=== PATIENT | male | born 1965 | race Caucasian/White ===

== ENCOUNTER 2021-11-02 13:56 | Outpatient (CLI) | payer OTHER, SELFPAY | END 2021-11-02 13:57 | disposition home or self-care (01) | LOC: ANHAUDASC 13:57 | PROVIDERS: Visit Provider Family Medicine | DX: H91.93 Unspecified hearing loss, bilateral (principal) | CPT/HCPCS: 92557; 92567 ==

== ENCOUNTER 2021-11-29 12:57 | Outpatient (RCR) | payer OTHER, SELFPAY | END 2022-02-27 23:59 | disposition home or self-care (01) | LOC: ANHAUDASC 12:57 | PROVIDERS: Visit Provider Family Medicine | DX: Z46.1 Encounter for fitting and adjustment of hearing aid (principal) | CPT/HCPCS: V5160; V5261 ==

== ENCOUNTER 2022-03-14 15:48 | Emergency (ER) | payer OTHER, SELFPAY ==
--- NOTE | ~2022-03-14 | XR_ITS ---
XR hip LT min 2V DATE: 03/14/2022 16:08 INDICATION: Left hip pain for one month. No injury. TECHNIQUE: AP, lateral and crosstable lateral views of left hip COMPARISON: None FINDINGS: No fracture or dislocation, avascular necrosis or bone destruction of the left hip. Left hip joint sp tai is relatively well-preserved. IMPRESSION: No significant abnormality Reviewed, dictated and finalized at location A. IMPRESSION: No significant abnormality
[2022-03-14 15:55] VITALS: BP 142/69; PULSE 60; RESP 16; TEMP 35.9; O2SAT 99
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
== END 2022-03-14 16:40 | disposition home or self-care (01) ==
PROVIDERS: Emergency Provider Registered Nurse; PCP Family Medicine
DX: M25.552 Pain in left hip (principal); Z87.891 Personal history of nicotine dependence; I25.10 Atherosclerotic heart disease of native coronary artery without angina pectoris; E78.5 Hyperlipidemia, unspecified; I10 Essential (primary) hypertension; Z79.82 Long term (current) use of aspirin
CPT/HCPCS: 73502; 99213; G0463

== ENCOUNTER 2023-03-05 12:38 | Emergency (ER) | payer OTHER, SELFPAY ==
--- NOTE | ~2023-03-05 | XR_ITS ---
EXAMINATION: XR foot LT min 3V DATE: 03/05/2023 13:05 INDICATION: Left foot pain. Fall. TECHNIQUE: 4 views of left foot were obtained. COMPARISON: Left ankle radiographs 05/17/2017 FINDINGS: There is a nondisplaced fracture of the anterior process of calcaneus. There is a chip avul danial fracture of the dorsal aspect of distal talus. Joint spaces are normal. IMPRESSION: 1. Nondisplaced fracture of anterior process of calcaneus. 2. Chip avulsion fracture of the dorsal aspect of distal talus. Reviewed, dictated and finalized at location A.
[2023-03-05 12:55] VITALS: BP 109/91; PULSE 85; RESP 16; TEMP 36.4; O2SAT 100
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
== END 2023-03-05 14:16 | disposition home or self-care (01) ==
PROVIDERS: Emergency Provider Nurse Practitioner; PCP Family Medicine
DX: S92.025A Nondisplaced fracture of anterior process of left calcaneus, initial encounter for closed fracture (principal); W10.9XXA Fall (on) (from) unspecified stairs and steps, initial encounter; S92.152A Displaced avulsion fracture (chip fracture) of left talus, initial encounter for closed fracture; M19.90 Unspecified osteoarthritis, unspecified site; I25.10 Atherosclerotic heart disease of native coronary artery without angina pectoris; E78.5 Hyperlipidemia, unspecified; I10 Essential (primary) hypertension; Z87.891 Personal history of nicotine dependence; F12.90 Cannabis use, unspecified, uncomplicated
CPT/HCPCS: 29515; 73630; 99214; G0463

== ENCOUNTER 2023-08-07 16:34 | Emergency (ER) | payer OTHER, SELFPAY ==
--- NOTE | ~2023-08-07 | XR_ITS ---
EXAMINATION: XR chest 2V DATE: 08/07/2023 17:25 INDICATION: Tachycardia, anxiety and nausea TECHNIQUE: frontal and lateral views of the chest were obtained. COMPARISON: Chest radiograph dated 02/27/11 FINDINGS: There is blunting at the bilateral posterior sulci consistent with tiny bilateral pleural effusions. Mild streaky atelectasis at the right lung base. No other airspace opacities, pulmonary edema or pneu mothorax. Heart size is normal. Heart size is normal. A few old right-sided rib fractures. IMPRESSION: 1. Very small bilateral pleural effusions with mild streaky right basilar atelectasis. Reviewed, dictated and finalized at location A. IMPRESSION: 1. Very small bilateral pleural effusions with mild streaky right basilar atele ctasis.
[2023-08-07 16:45] VITALS: BP 108/87; PULSE 103; RESP 16; TEMP 36.2; O2SAT 98
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
--- NOTE | 2023-08-07 17:14 | ECG_ITS ---
Measurements Intervals [place] Rate: 147 P: [place]: 0 QRS: 52 QRSD: 93 T: 95 QT: 278 QTc: 435 Interpretive Statements ATRIAL FIBRILLATION WITH RAPID VENTRICULAR RESPONSE LOW QRS VOLTAGE IN EXTREMITY LEADS [QRS DEFLECTION < 0.5 mV IN LIMB LEADS] NONSPECIFIC ST & T-WAVE ABNORMALITY ABNORMAL RHYTHM ECG NO PREVIOUS ECG AVAILABLE FOR COMPARISON Electronically Signed On 08-07-2023 20:37:33 CDT by Carly Fox M.D.
[2023-08-07 17:18] LABS: Glucose Point of Care 134 mg/dl (65-105)
== END 2023-08-07 17:55 | disposition short-term general hospital (02) ==
PROVIDERS: Emergency Provider Nurse Practitioner Family; PCP Family Medicine
DX: J90 Pleural effusion, not elsewhere classified (principal); I48.91 Unspecified atrial fibrillation; R11.10 Vomiting, unspecified; Z87.891 Personal history of nicotine dependence; F12.90 Cannabis use, unspecified, uncomplicated; M19.90 Unspecified osteoarthritis, unspecified site; I25.10 Atherosclerotic heart disease of native coronary artery without angina pectoris; E78.5 Hyperlipidemia, unspecified; I10 Essential (primary) hypertension; Z79.82 Long term (current) use of aspirin
CPT/HCPCS: 71046; 82948; 87426; 93005; 99213; C9803; G0463

== ENCOUNTER 2023-08-07 18:14 | Inpatient (IN) | payer OTHER, SELFPAY ==
[2023-08-07] VITALS (26 sets, daily range): BP systolic 102–117; BP diastolic 68–98; PULSE 118–157; RESP 12–20; O2SAT 92–100
--- NOTE | ~2023-08-07 | CT_ITS ---
EXAMINATION: CTA brain carotid DATE: 08/13/2023 00:19 INDICATION: Acute stroke. TECHNIQUE: Computed tomographic angiography (CTA) of the head was performed with 100 mL Omnipaque-350 intravenous contrast. CTA of the neck was performed with intravenous contrast. Automated exposure co ntrol and iterative reconstruction technique were employed. The dose-length product was 1397.07 mGy-c m. Maximum intensity projection and volume rendered 3D-reconstructions were created by the techn[employer]pptalki st on a separate workstation. COMPARISON: Head CT 08/12/2023 FINDINGS: HEAD CTA: There is no intracranial hemorrhage, acute infarction, or abnormal intracranial mass lesion . The ventricles are normal in size. The orbits are normal. There is mucosal thickening in the parana ashley sinuses. Left maxillary sinus is nearly completely opacified and demonstrates volume loss and wal l thickening and sclerosis, consistent with chronic sinusitis. The mastoid air cells are normal. The vertebral arteries are codominant. There is no significant stenosis of basilar artery or the posterio r cerebral arteries. The posterior communicating arteries are normal. There is no significant stenosi s of the intracranial internal carotid arteries or anterior or middle cerebral arteries. Anterior com municating artery is normal. There is no aneurysm. NECK CTA: There is a small right pleural effusion. There are no pathologically enlarged lymph nodes. There is no significant stenosis of the vertebral arteries. There is plaque in the proximal internal carotid arteries. There is 0% stenosis of the proximal right internal carotid artery relative to nor mal distal artery lumen diameter (NASCET criteria). There is 0% stenosis of the proximal left interna l carotid artery relative to normal distal artery lumen diameter. There is moderate cervical spondylo sis. IMPRESSION: 1. Normal brain. 2. No aneurysm or significant intracranial calcinosis. 3. 0% stenosis of the proximal internal carotid arteries relative to normal distal artery lumen diame ters (NASCET criteria). 4. Chronic left maxillary sinusitis. 5. Small right pleural effusion. Reviewed, dictated and finalized at location E. IMPRESSION: 1. Normal brain. 2. No aneurysm or significant intracranial calcinosis. 3. 0% stenosis of the proximal internal carotid arteries relative to normal dis nitin artery lumen diameters (NASCET criteria). 4. Chronic left maxillary sinusitis. 5. Small right pleural effusion.
--- NOTE | ~2023-08-07 | US_ITS ---
US abdomen limited INDICATION: Right upper quadrant pain PROCEDURE: Realtime right upper abdominal ultrasound. COMPARISON: No prior studies for comparison. FINDINGS: The pancreas is normal without focal mass or pancreatic ductal dilation. Liver echotexture is normal without focal mass or intrahepatic biliary dilatation. There is normal directional flow i n the portal vein. There are gallstones. Common bile duct measures 5.7 mm. No sonographic Hinds's sign. IMPRESSION: 1: Cholelithiasis. Reviewed, dictated and finalized at location L. IMPRESSION: 1: Cholelithiasis.
--- NOTE | ~2023-08-07 | CT_ITS ---
EXAMINATION: CT BRAIN W/O DATE: 08/12/2023 22:43 INDICATION: Acute vision loss. TECHNIQUE: Computed tomography (CT) of the head was performed without intravenous contrast. The dose- length product was 605.33 mGy-cm. Automated exposure control and iterative reconstruction technique w ere employed. COMPARISON: No prior studies for comparison. FINDINGS: Normal brain parenchymal volume for age. Normal perkins-white differentiation. No acute intrac ranial hemorrhage, infarction, mass or mass effect. No ventriculomegaly or midline shift. Midline sagittal images demonstrate a normal corpus callosum, c raniovertebral junction and sella turcica. Basilar cisterns are patent. There is mucosal thickening of the left maxillary sinus with mucoperiosteal reaction. Mastoids are pn eumatized. IMPRESSION: 1. No acute intracranial abnormality. 2: Chronic left maxillary sinusitis. Reviewed, dictated and finalized at location A.
--- NOTE | ~2023-08-07 | CT_ITS ---
EXAMINATION: CT brain wo con DATE: 08/14/2023 11:05 INDICATION: Follow-up brain bleed. TECHNIQUE: Computed tomography (CT) of the head was performed without intravenous contrast. The dose- length product was 681.00 mGy-cm. Automated exposure control and iterative reconstruction technique w ere employed. COMPARISON: Comparison to multiple prior studies sequentially, with oldest reviewed study dated 07/16. FINDINGS: There is an acute infarction of the right posterior parietal-occipital lobe with effacement of the overlying cortical sulci. No associated hemorrhage identified by CT. No ventriculomegaly or m idline shift. Basilar cisterns are patent. Mild mucosal thickening of the left maxillary sinus. Paran tammy sinuses are otherwise unremarkable. Mastoids are pneumatized. No depressed skull fractures. IMPRESSION: 1. Acute right posterior parietal/occipital lobe infarction with mild mass effect. No definite associ ated hemorrhage identified by CT. Reviewed, dictated and finalized at location B. IMPRESSION: 1. Acute right posterior parietal/occipital lobe infarction with mild mass effe ct. No definite associated hemorrhage identified by CT.
--- NOTE | ~2023-08-07 | MR_ITS ---
EXAMINATION: MR brain/brain stem wo con DATE: 08/13/2023 12:40 INDICATION: Acute cerebrovascular accident. Acute vision loss. TECHNIQUE: Magnetic resonance imaging (MRI) of the brain and brainstem was performed without intraven ous contrast. COMPARISON: Head CT 08/12/2023 FINDINGS: There is an acute infarct in right temporal occipital region. There is decreased T2*weighte d signal intensity in this distribution, consistent with microhemorrhage. There are scattered areas o f nonspecific increased T2-weighted signal intensity in the cerebral white matter, which is within no rmal limits for the patient's age. There is no abnormal mass lesion. The ventricles are normal in siz e. The orbits are normal. There is mucosal thickening in the paranasal sinuses. Left maxillary sinus is small with thickened wall, consistent with chronic sinusitis. IMPRESSION: 1. Acute infarct with foci of microhemorrhage in right temporal occipital region in the expected dist ribution of right posterior cerebral artery. 2. Chronic left maxillary sinusitis. Reviewed, dictated and finalized at location E. IMPRESSION: 1. Acute infarct with foci of microhemorrhage in right temporal occipital regio n in the expected distribution of right posterior cerebral artery. 2. Chronic left maxillary sinusitis.
--- NOTE | ~2023-08-07 | CT_ITS ---
EXAMINATION: CTA chest PE protocol DATE: 08/07/2023 23:33 INDICATION: Elevated d-dimer TECHNIQUE: Computed tomography angiography (CTA) of the chest was performed with 100 mL Omnipaque-350 intravenous contrast timed to evaluate the pulmonary arteries. Coronal maximum intensity projection 3D-reconstructions were created by the technologist. The dose-length product (DLP) was 909.02 mGy-cm. Automated exposure control and iterative reconstruction technique were employed. COMPARISON: X-ray chest, same date. FINDINGS: Lung parenchyma and airways: Dependent atelectasis. Interlobular septal thickening. Pleura: Unremarkable. Thoracic inlet, axillae and chest wall: Unremarkable. Thoracic aorta: Normal. Mediastinum: Bilateral hilar and mediastinal lymphadenopathy. Dilated central pulmonary arteries as c an be seen with pulmonary arterial hypertension Heart and pericardium: Cardiomegaly. Small volume pericardial effusion. Coronary artery calcifications: Absent. Upper abdomen: Hepatic vein reflux. Cholelithiasis with inflammatory change in the sonu hepatis. Bones: No acute osseous finding. Pulmonary arteries: Study quality: Adequate. No pulmonary emboli detected. IMPRESSION: No CT evidence of acute pulmonary embolus. Cardiomegaly. Small pericardial effusion. Hepatic vein reflux, as can be seen with right heart dysfun ction. Interstitial pulmonary edema. Mediastinal and bilateral hilar lymphadenopathy. Cholelithiasis with inflammatory changes in the sonu hepatis, correlate with right upper quadrant te nderness and biliary labs. Reviewed, dictated and finalized at location K. IMPRESSION: No CT evidence of acute pulmonary embolus. Cardiomegaly. Small pericardial effusion. Hepatic vein reflux, as can be seen w ith right heart dysfunction. Interstitial pulmonary edema. Mediastinal and bilateral hilar lymphadenopathy. Cholelithiasis with inflammatory changes in the sonu hepatis, correlate with r ight upper quadrant tenderness and biliary labs.
--- NOTE | 2023-08-07 18:33 | ECG_ITS ---
Measurements Intervals [place] Rate: 151 P: [place]: 0 QRS: -18 QRSD: 97 T: 133 QT: 300 QTc: 477 Interpretive Statements ATRIAL FIBRILLATION WITH RAPID VENTRICULAR RESPONSE POOR R-WAVE PROGRESSION, CANNOT RULE OUT OLD pOSSIBLE ANTERIOR MYOCARDIAL INFARCTION COMPARED TO ECG 08/07/2023 17:38:44 NO SIGNIFICANT CHANGES Electronically Signed On 08-07-2023 20:38:09 CDT by Carly Fox M.D.
[2023-08-07 19:14] LABS: Basophils Absolute Auto 0.1 K/mm3 (0.0-0.1); Basophils Percent Auto 0.6 % (0.2-1.2); Eosinophils Absolute Auto 0.1 K/mm3 (0-0.3); Eosinophils Percent Auto 0.5 % (0-4.4); Hematocrit 44.4 % (42.0-52.0); Hemoglobin 14.6 g/dL (14.0-18.0); Immature Granulocyte Absolute 0.03 K/mm3 (0.00-0.031); Immature Granulocyte Percent A 0.3 % (0-0.5); Lymphocytes Absolute Auto 1.32 K/mm3 (0.9-3.2); Lymphocytes Percent Auto 11.5 % (18.3-44.2); Mean Corpuscular HGB Conc 32.9 g/dl (32-36); Mean Corpuscular Hemoglobin 30.5 pg (26-34); Mean Corpuscular Volume 92.9 fl (80-100); Mean Platelet Volume 11.7 fl (7.4-10.4); Monocytes Percent Auto 8.9 % (2.6-8.5); Neutrophils Percent Auto 78.2 % (45.5-73.1); Platelet Count Result 229 k/mm3 (150-375); Red Blood Count 4.78 M/mm3 (4.6-6.20); Red Cell Distribution Width 14.2 % (11.5-14.5); White Blood Count 11.5 K/mm3 (4.5-10.0)
[2023-08-07 19:20] LABS: INR 1.3; Partial Thromboplastin Time 29.2 SECONDS (22.3-36.8)
[2023-08-07 19:41] LABS: Ethanol < 10 mg/dL (<10)
[2023-08-07 19:42] LABS: Alanine Aminotransferase 115 U/L (6-50); Albumin Level 4.1 g/dL (3.5-5.1); Alkaline Phosphatase 83 U/L (38-126); Anion Gap 11 mmol/L (8-16); Aspartate Amino Transferase 179 U/L (17-59); Bilirubin,Total 2.1 mg/dL (0.2-1.3); Blood Urea Nitrogen 17 mg/dL (9-20); Calcium 8.9 mg/dL (8.4-10.2); Carbon Dioxide 19 mmol/L (22-30); Chloride 104 mmol/L (98-107); Estimated CRCL calculation 97 ml/min; Estimated Glomerular Filt Rate > 60; Glucose 116 mg/dL (65-110); Magnesium 1.8 mg/dL (1.6-2.3); Sodium 134 mmol/L (137-145)
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
[2023-08-07 19:53] LABS: NT Pro B Type Natriuretic Pept 7960 pg/mL (19.9-100); Troponin I 0.014 ng/mL (0.000-0.034)
[2023-08-07] MEDS: SODIUM CHLORIDE 0.9% IV 1,000 ML 999 ML IV CONT (20:07)
[2023-08-07] MEDS: MAGNESIUM SULF 1 GM/D5W 100 ML 1 GM/100 ML BAG IVPB (20:08)
[2023-08-07] MEDS: dilTIAZem HCl INJ 25 MG/5 ML VIAL 10 MG IV PUSH ×2 (21:06→22:09)
[2023-08-07 21:50] LABS: Troponin I 0.015 ng/mL (0.000-0.034)
[2023-08-07 22:13] LABS: D Dimer 1.45 ug/mL (<0.48)
[2023-08-07] MEDS: SODIUM CHLORIDE 0.9% IV 1,000 ML 125 ML IV CONT (23:15)
[2023-08-07] MEDS: dilTIAZem 100 MG/100 ML 100 MG/100 ML BAG IV CONT (23:17)
[2023-08-07 23:29] LABS: Appearance Urine Clear (Clear); Bilirubin Urine Negative (Negative); Blood Urine Negative (Negative); Color Urine Yellow (Yellow); Glucose Urine UA Negative (Negative); Ketones Urine Negative (Negative); Leukocyte Esterase Ur Negative LEU/UL (Negative); Nitrate Urine Negative (Negative); Protein Urine Negative (Negative); Specific Grav Ur 1.009 (1.001-1.035); pH Urine 5.5 (5.0-9.0)
[2023-08-07 23:30] LABS: Add Urine Microscopic? NO
[2023-08-08] VITALS (38 sets, daily range): BP systolic 90–117; BP diastolic 61–93; PULSE 70–144; RESP 14–23; TEMP 36–36.6; O2SAT 92–99; BMI 26.6
--- NOTE | 2023-08-08 | ECHO_ITS ---
Patient Info Name: Roberto Dinero Age: 58 years : 1965 Gender: Male Ht: 73 in Wt: 218 lbs BSA: 2.28 m2 HR: 90 bpm BP: 97 / 68 mmHg Heart Rhythm: Sinus Rhythm, Atrial Fibrillation Technical Quality: Good Exam Date: 08/08/2023 2:27 PM Exam Location: [facility] Card Pulmonary Patient Status: Inpatient Admit Date: 08/07/2023 Staff Ordering Physician: Lesa Gerber MD Demurrage Worker: Jammie Mao RDCS Attending Provider: Renetta Boston MD Exam Type: CA echo doppler color flow Study Info Indications - new onset a fib Complete two-dimensional, color flow and Doppler transthoracic echocardiogram is performed. Summary 1. Complete two-dimensional, color flow and Doppler transthoracic echocardiogram is performed. 2. Mild left ventricular enlargement with normal wall thickness. Severe global hypokinesis with an estimated ejection fraction of 20%. Diastolic dysfunction is present. 3. The right ventricle also appears mildly enlarged with moderate hypokinesis. 4. There is moderate mitral valve regurgitation. 5. There is mild tricuspid valve regurgitation. 6. No pulmonary hypertension, estimated pulmonary arterial systolic pressure is 29 mmHg. 7. Atrial fibrillation. Left Ventricle Left ventricular chamber dimension is mildly enlarged. Left ventricular systolic function is severely reduced, estimated at 15-20%. There is no increased left ventricular wall thickness. Left ventricular septal wall motion is normal. The left ventricular diastolic function is abnormal. Right Ventricle Right ventricular chamber dimension is mildly enlarged. Right ventricular systolic function is reduced. Left Atria Left atrial chamber dimension is severely enlarged. Right Atria Right atrial chamber dimension is mildly enlarged. Aortic Valve The aortic valve is trileaflet. There is no aortic valve sclerosis. There is no aortic valve stenosis. There is trace aortic valve regurgitation. Pulmonic Valve The pulmonic valve is normal. There is no pulmonic valve stenosis. There is no pulmonic regurgitation. Mitral Valve The mitral valve has normal leaflets. There is no mitral valve stenosis. There is moderate mitral valve regurgitation. Tricuspid Valve The tricuspid valve leaflets are normal. There is no significant tricuspid valve stenosis. There is mild tricuspid valve regurgitation. No pulmonary hypertension, estimated pulmonary arterial systolic pressure is 29 mmHg. Pericardium/Pleural The pericardium appears normal. There is no pericardial effusion. Inferior Vena Cava Dilated inferior vena cava with >50% collapse upon inspiration consistent with Empty right atrial pressure, 15 mmHg. Aorta The aortic root size at the sinus of Valsalva is normal. The prox ascending aorta size is normal. Left Ventricular Outflow Tract Name Value Normal LVOT 2D LVOT Diameter 2.3 cm LVOT Doppler LVOT Peak Gradient 3 mmHg LVOT Mean Gradient 2 mmHg LVOT VTI 18 cm LVOT VTI/AV VTI Ratio 0.8 LVOT Stroke Volume 75 ml LVOT CO 5.0 l/min
--- NOTE | 2023-08-08 03:31 | ADMGEN ---
This patient, Roberto Dinero, was admitted to IMU Room 209-01. Patient/family oriented to hospital policies and general routines including ID bracelet, bed and alarms, visiting hours, pain management, procedures, bathroom and other care routines, personal items, smoking policy, room service/diet, and visiting hours. Information on how to activate the Rapid Response Team has been discussed. Patient/Family are encouraged to report perceived risks to care and to ask questions if they do not understand what they are told or what they should do.
[2023-08-08] MEDS: dilTIAZem 100 MG/100 ML 100 MG/100 ML BAG 15 MG IV CONT ×2 (06:09→12:59)
--- NOTE | 2023-08-08 10:00 | ECG_ITS ---
Measurements Intervals [address] [place] Rate: 89 P: AK: 0 QRS: 51 QRSD: 99 T: 159 QT: 400 QTc: 487 Interpretive Statements ATRIAL FIBRILLATION LOW QRS VOLTAGE IN EXTREMITY LEADS [QRS DEFLECTION < 0.5 mV IN LIMB LEADS] ST DEVIATION AND MODERATE T-WAVE ABNORMALITY, CONSIDER ANTEROLATERAL ISCHEMIA [-0.1+ mV T WAVE IN V3-V6] COMPARED TO ECG 08/07/2023 18:39:51 THE LATERAL T-WAVE INVERSION IS NEW Electronically Signed On 08-08-2023 12:59:33 CDT by Carly Fox M.D.
[2023-08-08] MEDS: KETOROLAC 30 MG/ML VIAL (*BKC) IV PUSH (10:42)
[2023-08-08] MEDS: SODIUM CHLORIDE 0.9% IV 1,000 ML 125 ML IV CONT (10:43)
[2023-08-08 10:54] LABS: Troponin I 0.016 ng/mL (0.000-0.034)
[2023-08-08 11:08] LABS: Hemoglobin 12.6 g/dL (14.0-18.0); Mean Corpuscular HGB Conc 32.3 g/dl (32-36); Mean Corpuscular Hemoglobin 30.1 pg (26-34); Mean Corpuscular Volume 93.3 fl (80-100); Mean Platelet Volume 11.1 fl (7.4-10.4); Platelet Count Result 199 k/mm3 (150-375); Red Blood Count 4.18 M/mm3 (4.6-6.20); White Blood Count 9.7 K/mm3 (4.5-10.0)
[2023-08-08 11:26] LABS: Alanine Aminotransferase 102 U/L (6-50); Albumin Level 3.8 g/dL (3.5-5.1); Alkaline Phosphatase 81 U/L (38-126); Anion Gap 9 mmol/L (8-16); Aspartate Amino Transferase 108 U/L (17-59); Bilirubin,Total 1.7 mg/dL (0.2-1.3); Blood Urea Nitrogen 13 mg/dL (9-20); Calcium 8.4 mg/dL (8.4-10.2); Carbon Dioxide 19 mmol/L (22-30); Chloride 107 mmol/L (98-107); Estimated CRCL calculation 105 ml/min; Estimated Glomerular Filt Rate > 60; Glucose 99 mg/dL (65-110); Lipase 71 U/L (23-300); Potassium 3.8 mmol/L (3.4-5.0); Sodium 135 mmol/L (137-145)
--- NOTE | 2023-08-08 12:06 | PM.CNGS ---
Assessment and Plan Assessment and plan (1) Cholelithiasis: Code(s): K80.20 - Calculus of gallbladder without cholecystitis without obstruction Status: Acute Assessment and Plan: CTA chest showed cholelithiasis with inflammatory change in the sonu hepatis. Labs showed elevated LFTs, total bilirubin 2.1, AST 179, ALT 115, and normal alk phos. He does report having abdominal pain, vomiting, and diarrhea intermittently for the past week. It is possible that some of his symptoms are related to his gallbladder. Recommend keeping him NPO for now and proceeding with RUQ abdominal ultrasound to further evaluate the gallbladder. We will also start IV antibiotics to cover for possible acute cholecystitis. Will repeat labs today and trend LFTs. His abdominal pain has subsided and symptoms improved. Depending on further work-up, we may need to consider the option of proceeding with a cholecystectomy at some point once his atrial fibrillation is controlled if warranted. If there is any common bile duct dilatation or elevation in his total bilirubin, then we may need to also consider an MRCP to evaluate for choledocholithiasis. (2) Elevated LFTs: Code(s): R79.89 - Other specified abnormal findings of blood chemistry Status: Acute Assessment and Plan: See plan above. (3) Atrial fibrillation with RVR: Code(s): I48.91 - Unspecified atrial fibrillation Status: Acute Assessment and Plan: New onset atrial fibrillation with RVR. Still on a diltiazem drip, but rate improved. Continue management per primary service. We would need his afib to be controlled prior to considering proceeding with surgery. (4) Hypertension: Code(s): I10 - Essential (primary) hypertension Status: Acute Plan I have discussed the patient's case and plan of care with Dr. Jarvis. Thank you for allowing us to see the patient in consultation and we will continue to follow along with you. History of Present Illness Consult details Consult date: 08/08/23 Reason for consult: other (Cholelithiasis with sonu hepatic inflammation on CTA chest) Requesting physician: Julian Hicks DO Narrative: This is a 58 year old man with a history of hypertension and hyperlipidemia, who presented to an urgent care yesterday with multiple medical complaints. Over the past week, he has had generalized malaise, upper abdominal pain, poor appetite, nausea, vomiting, and diarrhea. He reports first noticing he wasn't feeling well and having an episode of emesis through the night. He began having diarrhea, that seemed to persist over the next few days. He had 3-4 episodes of vomiting over the past week and could not associate this with meals or anything specific. He also had persistent upper abdominal pain. This was pretty constant and he denies any aggravating factors. He had a poor appetite, so he could not tell if the pain was associated with eating. He was having panic attacks and would have episodes where he felt like he couldn't breathe. With further questioning, he does reports noticing dark orange-colored urine over the past week, but denies acholic stools or jaundice. He decided to present to urgent care for his symptoms yesterday. He had a chest x-ray that showed very small bilateral pleural effusions and right basilar atelectasis. EKG ordered and showed atrial fibrillation with RVR. He was then directed to the ER for further workup. In the ER, he was in Atrial fibrillation with RVR. He was given IV fluids, magnesium, and started on a diltiazem drip. Labs showed a WBC count of 11,500, total bilirubin 2.1, AST 179, ALT 115. COVID negative. Ddimer 1.45. CTA chest was ordered and was negative for pulmonary embolism, but showed cardiomegaly, small pericardial effusion, hepatic vein reflux, interstitial pulmonary edema, mediastinal and bilateral hilar lymphadenopathy, cholelithiasis with inflammatory change int he sonu hepatis. He was admitted to IMU. Our servi
[2023-08-08] MEDS: PIPERACILLN/TAZ 3.375GM/NS50ML 3.375 GM/50 ML BAG IVPB ×3 (12:43→23:39)
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
[2023-08-08 15:13] LABS: Basophils Absolute Auto 0.1 K/mm3 (0.0-0.1); Basophils Percent Auto 0.5 % (0.2-1.2); Eosinophils Absolute Auto 0.1 K/mm3 (0-0.3); Eosinophils Percent Auto 0.7 % (0-4.4); Hematocrit 38.7 % (42.0-52.0); Hemoglobin 12.6 g/dL (14.0-18.0); Immature Granulocyte Absolute 0.03 K/mm3 (0.00-0.031); Immature Granulocyte Percent A 0.3 % (0-0.5); Mean Corpuscular HGB Conc 32.6 g/dl (32-36); Mean Corpuscular Hemoglobin 30.4 pg (26-34); Mean Corpuscular Volume 93.3 fl (80-100); Mean Platelet Volume 10.8 fl (7.4-10.4); Monocytes Absolute Auto 0.9 K/mm3 (0.1-0.6); Monocytes Percent Auto 9.3 % (2.6-8.5); Neutrophils Percent Auto 77.2 % (45.5-73.1); Platelet Count Result 196 k/mm3 (150-375); Red Blood Count 4.15 M/mm3 (4.6-6.20); White Blood Count 9.1 K/mm3 (4.5-10.0)
--- NOTE | 2023-08-08 15:27 | PC.NURSE ---
On 08/08/23, the student, Mayelin [facility], provided care and completed [employer] documentation on this patient. I have reviewed the student's documentation and agree with the findings.
[2023-08-08] MEDS: HEPARIN SOD/D5W 100 UNITS/ML 25,000 UNITS/250 ML BAG 15 UNITS IV CONT (15:32)
[2023-08-08 15:33] LABS: INR 1.4; Partial Thromboplastin Time 33.3 SECONDS (22.3-36.8); Prothrombin Time 17.9 Seconds (11.1-14.7)
[2023-08-08] MEDS: METOPROLOL TARTRATE 25 MG TABLET PO ×2 (15:35→22:00)
[2023-08-08] MEDS: HYDROcodone/acetaminophen (*CRX) 10-325 MG TABLET 1 TAB PO (18:14)
[2023-08-08] MEDS: DOCUSATE SODIUM 100 MG CAPSULE PO (18:20)
[2023-08-08] MEDS: dilTIAZem 100 MG/100 ML 100 MG/100 ML BAG IV CONT (20:12)
[2023-08-08] MEDS: OXYMETAZOLINE HCL 0.05% NAS 15 ML BTL (*BKC) 2 SPRAY NASAL (21:59)
[2023-08-08] MEDS: LORazepam (*CRX) 0.5 MG TABLET PO (22:00)
[2023-08-08] MEDS: PRAVASTATIN SODIUM 20 MG TABLET PO (22:00)
[2023-08-08] MEDS: OMEGA 3 POLYUNSAT FATTY ACIDS 1 GM CAP PO (22:00)
[2023-08-08 22:03] LABS: Partial Thromboplastin Time 69.3 SECONDS (22.3-36.8)
[2023-08-09] VITALS (25 sets, daily range): BP systolic 98–122; BP diastolic 70–93; PULSE 62–142; RESP 17–20; TEMP 36.5–36.8; O2SAT 94–100
[2023-08-09 05:36] LABS: Basophils Percent Auto 0.4 % (0.2-1.2); Hematocrit 40.6 % (42.0-52.0); Immature Granulocyte Absolute 0.03 K/mm3 (0.00-0.031); Immature Granulocyte Percent A 0.3 % (0-0.5); Lymphocytes Absolute Auto 0.76 K/mm3 (0.9-3.2); Mean Corpuscular Hemoglobin 30.2 pg (26-34); Mean Corpuscular Volume 94.2 fl (80-100); Mean Platelet Volume 11.2 fl (7.4-10.4); Monocytes Absolute Auto 1.2 K/mm3 (0.1-0.6); Monocytes Percent Auto 11.4 % (2.6-8.5); Neutrophils Absolute Auto 8.9 K/mm3 (1.3-6.7); Neutrophils Percent Auto 80.9 % (45.5-73.1); Platelet Count Result 195 k/mm3 (150-375); Red Blood Count 4.31 M/mm3 (4.6-6.20); Red Cell Distribution Width 14.1 % (11.5-14.5); White Blood Count 10.9 K/mm3 (4.5-10.0)
[2023-08-09 05:41] LABS: INR 1.4; Prothrombin Time 17.8 Seconds (11.1-14.7)
[2023-08-09 05:44] LABS: Alanine Aminotransferase 215 U/L (6-50); Albumin Level 3.7 g/dL (3.5-5.1); Alkaline Phosphatase 81 U/L (38-126); Anion Gap 9 mmol/L (8-16); Aspartate Amino Transferase 297 U/L (17-59); Bilirubin,Total 1.5 mg/dL (0.2-1.3); Blood Urea Nitrogen 19 mg/dL (9-20); Calcium 8.7 mg/dL (8.4-10.2); Carbon Dioxide 21 mmol/L (22-30); Chloride 106 mmol/L (98-107); Estimated CRCL calculation 85 ml/min; Estimated Glomerular Filt Rate > 60; Glucose 119 mg/dL (65-110); Potassium 4.3 mmol/L (3.4-5.0); Sodium 136 mmol/L (137-145)
[2023-08-09] MEDS: PIPERACILLN/TAZ 3.375GM/NS50ML 3.375 GM/50 ML BAG IVPB ×4 (05:53→23:38)
[2023-08-09] MEDS: METOPROLOL TARTRATE 25 MG TABLET PO ×2 (09:34→13:39)
[2023-08-09] MEDS: ONDANSETRON INJ 4 MG/2 ML VIAL IV PUSH (09:54)
--- NOTE | 2023-08-09 10:01 | PC.NURSE ---
Dr. Jarvis called RN. I was paged regarding Mr. Dinero. RN informed MD that she had called pre-op for clarification on pt after being informed in report that They may take him to surgery. Dr. Jarvis wants his Afib more controlled, and now it is. Pt still on Cardizem gtt at 5mg/hr. Dr. Jarvis clarified I'm not taking this pt to surgery. I would like to discharge him from my stand point and proceed with outpatient surgery once stable from a cardiac stand point. The pt can eat if he's hungry. You can put him on the same diet he was on yesterday. As far as the heparin drip, I'm not sure who started it or stop it so that'll need to be addressed with that doctor. RN in agreement with Dr. Jarvis's recommendations and placed pt on bland, low fat diet.
[2023-08-09] MEDS: MULTIVITAMINS /C LUTEIN (CENTRUM SILVER) TABLET *BKC 0.5 TAB PO ×2 (10:51→16:18)
[2023-08-09] MEDS: ASPIRIN 81 MG ENTERIC TABLET PO (10:52)
[2023-08-09] MEDS: LORATADINE 10 MG TABLET PO (10:52)
[2023-08-09] MEDS: PSYLLIUM POWDER PACKET 1 PACKET PO (10:52)
[2023-08-09] MEDS: CYCLOBENZAPRINE HCL 10 MG TABLET PO ×3 (10:52→16:18)
--- NOTE | 2023-08-09 12:13 | PM.PNGS ---
Progress Note: A&P Assessment and Plan (1) Cholelithiasis: Code(s): K80.20 - Calculus of gallbladder without cholecystitis without obstruction Status: Acute Assessment and Plan: Patient likely has been having some symptomatic cholelithiasis and some degree of chronic cholecystitis. I do not think he has acute cholecystitis to the point that he needs urgent surgery at this point. He has recently diagnosed with new onset atrial fibrillation and his heart rate is now controlled. I discussed with the hospitalist and he plans on discharging the patient on Eliquis. I think that is reasonable and ventrally when I perform an interval laparoscopic cholecystectomy on a patient I can stop his Eliquis 3 days before surgery. We will go ahead and discharge him with some Cipro for the next 10 days. He is to follow-up see me in office in 2 weeks to further discuss surgery for his gallbladder. (2) Elevated LFTs: Code(s): R79.89 - Other specified abnormal findings of blood chemistry Status: Acute Assessment and Plan: Slightly decreased total bilirubin today. Okay to discharge home. Subjective Subjective Date/Time Seen: 08/09/23 12:13 Interval history: Patient feels good today. Really no right upper quadrant epigastric abdominal pain. He is tolerating full low-fat diet without difficulty. Liver enzymes are slightly decreased. Exam GI: Other: Abdomen is soft and nondistended. Palpation of the right upper quadrant reveals no significant tenderness. Abdominal exam is benign. Objective Data Vital Signs Vital Signs: Vital Signs - 24 hr 08/08/23 12:59 08/08/23 15:35 08/08/23 16:21 Temperature 36.1 C L Pulse Rate 114 H 83 81 Respiratory Rate 20 Blood Pressure 94/72 L Pulse Oximetry 95 Oxygen Delivery 08/08/23 18:15 08/08/23 16:00 08/08/23 14:00 Temperature Pulse Rate 70 80 86 Respiratory Rate Blood Pressure Pulse Oximetry Oxygen Delivery 08/08/23 18:00 08/08/23 19:33 08/08/23 19:36 Temperature 36.4 C Pulse Rate 74 72 77 Respiratory Rate 20 Blood Pressure 90/61 L Pulse Oximetry 96 Oxygen Delivery 08/08/23 16:00 08/08/23 20:12 08/08/23 20:28 Temperature Pulse Rate 76 Respiratory Rate Blood Pressure 90/61 L 108/83 Pulse Oximetry Oxygen Delivery Room Air 08/08/23 22:00 08/08/23 22:58 08/08/23 20:00 Temperature 36.3 C L Pulse Rate 96 84 84 Respiratory Rate 20 Blood Pressure 108/74 Pulse Oximetry 99 Oxygen Delivery 08/08/23 20:00 08/09/23 00:00 08/08/23 22:00 Temperature Pulse Rate 104 H Respiratory Rate Blood Pressure Pulse Oximetry Oxygen Delivery Room Air Room Air 08/09/23 00:00 08/09/23 02:00 08/09/23 03:57 Temperature 36.8 C Pulse Rate 88 86 90 Respiratory Rate 20 Blood Pressure 105/71 Pulse Oximetry 100 Oxygen Delivery 08/09/23 04:00 08/09/23 04:00 08/09/23 06:00 Temperature Pulse Rate 87 96 Respiratory Rate Blood Pressure Pulse Oximetry Oxygen Delivery Room Air 08/09/23 07:25 08/09/23 09:34 08/09/23 11:33 Temperature 36.6 C 36.7 C Pulse Rate 62 99 66 Respiratory Rate 17 18 Blood Pressure 104/72 106/78 Pulse Oximetry 94 97 Oxygen Delivery Intake/Output Intake/Output: Intake & Output 08/06/23 08/07/23 08/08/23 08/09/23 23:59 23:59 23:59 23:59 Intake Total 1100 2100 700 Output Total 1400 Balance 1100 700 700 Meds/Results Medications: Active Medications Generic Name Dose Route Start Last Admin Trade Name Freq PRN Reason Stop Dose Admin Acetaminophen 650 mg 08/08/23 17:51 Acetaminophen 325 Mg Tablet PO Q6H PRN Mild Pain (1-3) or Fever Hydrocodone Bitart/Acetaminophen 1 tab 08/08/23 17:51 08/08/23 18:14 Hydrocodone/Acetaminophen (*Crx) 10-325 Mg Tablet PO 1 tab Q6H PRN Administration Pain Rated 4-6 Aspirin 81 mg 08/09/23 09:00 08/09/23 10:52 Aspirin 8
--- NOTE | 2023-08-09 13:06 | PM.IMPN ---
Progress Note: A&P Assessment and Plan (1) Cholelithiasis: Code(s): K80.20 - Calculus of gallbladder without cholecystitis without obstruction Status: Acute (2) Elevated LFTs: Code(s): R79.89 - Other specified abnormal findings of blood chemistry Status: Acute (3) Atrial fibrillation with RVR: Code(s): I48.91 - Unspecified atrial fibrillation Status: Acute Plan 58M w/ PMH [place], HTN. mother is present in room and gives the history as well. The patient had weeks of weakness, nausea, and nonbilious vomiting a few times. At night he also felt palpitations which awoke him from sleep. He finally decided to seek evaluation. Admitted on 08/08 1) new onset a fib - dilt weaned from 15mg to 5mg. will d'c and increased metoprolol to 50mg po bid given his HR is now in low 100's - CTA neg for PE - TSH wnl - chadsvasc is 2. switching heparin to eliquis, will have cholecystectomy per surgery as outpatient - 2d echo revealing severe global hypokinesis w/ EF 20% and diastolic dysfunction. considering this will consult cardiology - had elevated BNP on admission and 08/09 pt complaining of swelling in feet and excessively tired. consult PT/OT and give one time dose lasix 20mg po 2) leukocytosis - could be reactive or 2/2 to gallbladder issues - check sputum culture - pro sandeep tomorrow 3) cholelithiasis - likely chronic. surgery plan for outpatient, will continue zosyn for now and cipro on discharge for 10 days - monitor lfts FEN: saline lock IV, cardiac diet GI prophylaxis: not indicated DVT prophylaxis: eliquis Lines: pIV Code Status: full code Dispo: stable More than 35 minutes spent on chart review, patient interaction and assessment and plan. Subjective Date/time seen: 08/09/23 13:06 Interval history: pt reports feeling like there is water on his feet, got tired from brushing his hair. he has been producing sputum. weak, but better, no other complaints. Review of Systems Review of Systems: All systems reviewed & are unremarkable except as noted in HPI and below Exam Const: General: comfortable and no acute distress Resp: Effort & Inspection: normal respiratory effort Auscultation: crackles (scant/ at bases) Cardio: Rhythm: abnormal rhythm GI: GI Palp: Yes Soft to palpation Auscultation: normal bowel sounds Extrem: General: no edema Objective Data Vital Signs Vital Signs: Vital Signs - 24 hr 08/08/23 15:35 08/08/23 16:21 08/08/23 18:15 Temperature 97.0 F L Pulse Rate 83 81 70 Respiratory Rate 20 Blood Pressure 94/72 L Pulse Oximetry 95 Oxygen Delivery 08/08/23 16:00 08/08/23 14:00 08/08/23 18:00 Temperature Pulse Rate 80 86 74 Respiratory Rate Blood Pressure Pulse Oximetry Oxygen Delivery 08/08/23 19:33 08/08/23 19:36 08/08/23 16:00 Temperature 97.6 F Pulse Rate 72 77 Respiratory Rate 20 Blood Pressure 90/61 L Pulse Oximetry 96 Oxygen Delivery Room Air 08/08/23 20:12 08/08/23 20:28 08/08/23 22:00 Temperature Pulse Rate 76 96 Respiratory Rate Blood Pressure 90/61 L 108/83 Pulse Oximetry Oxygen Delivery 08/08/23 22:58 08/08/23 20:00 08/08/23 20:00 Temperature 97.4 F L Pulse Rate 84 84 Respiratory Rate 20 Blood Pressure 108/74 Pulse Oximetry 99 Oxygen Delivery Room Air 08/09/23 00:00 08/08/23 22:00 08/09/23 00:00 Temperature Pulse Rate 104 H 88 Respiratory Rate Blood Pressure Pulse Oximetry Oxygen Delivery Room Air 08/09/23 02:00 08/09/23 03:57 08/09/23 04:00 Temperature 98.2 F Pulse Rate 86 90 Respiratory Rate 20 Blood Pressure 105/71 Pulse Oximetry 100 Oxygen Delivery Room Air 08/09/23 04:00 08/09/23 06:00 08/09/23 07:25 Temperature 97.8 F Pulse Rate 87 96 62 Respiratory Rate 17 Blood Pressure 104/72 Pulse Oximetry 94 Oxygen Delivery 08/09/23 09:34 08/09/23 11:33 08/09/23 08:00 Temperature 98.1 F Pulse
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
[2023-08-09] MEDS: FUROSEMIDE 20 MG TABLET PO (13:38)
--- NOTE | 2023-08-09 16:03 | PCCPR ---
Seen patient regarding Cardiac Rehab. Program explained and patient seemed interested. Will follow up after discharge.
[2023-08-09] MEDS: FUROSEMIDE INJ 40 MG/4 ML VIAL IV PUSH (16:18)
[2023-08-09] MEDS: HEPARIN SODIUM 5,000 UNITS/ML VIAL 7500 UNITS IV PUSH (16:18)
[2023-08-09] MEDS: HEPARIN SOD/D5W 100 UNITS/ML 25,000 UNITS/250 ML BAG 15 UNITS IV CONT (16:19)
[2023-08-09 17:11] LABS: Basophils Absolute Auto 0.1 K/mm3 (0.0-0.1); Basophils Percent Auto 0.7 % (0.2-1.2); Eosinophils Absolute Auto 0.1 K/mm3 (0-0.3); Eosinophils Percent Auto 0.6 % (0-4.4); Hematocrit 41.3 % (42.0-52.0); Hemoglobin 13.3 g/dL (14.0-18.0); Immature Granulocyte Absolute 0.03 K/mm3 (0.00-0.031); Immature Granulocyte Percent A 0.3 % (0-0.5); Lymphocytes Absolute Auto 1.19 K/mm3 (0.9-3.2); Lymphocytes Percent Auto 11.3 % (18.3-44.2); Mean Corpuscular HGB Conc 32.2 g/dl (32-36); Mean Corpuscular Hemoglobin 30.5 pg (26-34); Mean Corpuscular Volume 94.7 fl (80-100); Mean Platelet Volume 10.9 fl (7.4-10.4); Monocytes Absolute Auto 1.2 K/mm3 (0.1-0.6); Monocytes Percent Auto 11.1 % (2.6-8.5); Platelet Count Result 206 k/mm3 (150-375); Red Blood Count 4.36 M/mm3 (4.6-6.20); Red Cell Distribution Width 14.4 % (11.5-14.5); White Blood Count 10.5 K/mm3 (4.5-10.0)
[2023-08-09 17:19] LABS: INR 1.4; Prothrombin Time 17.6 Seconds (11.1-14.7)
[2023-08-09 17:20] LABS: Partial Thromboplastin Time 30.7 SECONDS (22.3-36.8)
[2023-08-09] MEDS: PRAVASTATIN SODIUM 20 MG TABLET PO (20:34)
[2023-08-09] MEDS: OMEGA 3 POLYUNSAT FATTY ACIDS 1 GM CAP PO (20:34)
[2023-08-09] MEDS: METOPROLOL TARTRATE INJ 5 MG/5 ML VIAL IV PUSH (20:34)
[2023-08-09] MEDS: METOPROLOL TARTRATE 50 MG TAB PO (21:09)
[2023-08-09] MEDS: SACUBITRIL/VALSARTAN 12-13 MG TABLET 1 TAB PO (21:09)
[2023-08-09 22:32] LABS: Partial Thromboplastin Time 109.3 SECONDS (22.3-36.8)
[2023-08-09] MEDS: DIGOXIN 250 MCG TABLET PO (23:37)
[2023-08-10] VITALS (20 sets, daily range): BP systolic 100–144; BP diastolic 66–86; PULSE 53–116; RESP 16–20; TEMP 36.1–36.6; O2SAT 94–100
[2023-08-10 05:27] LABS: Basophils Absolute Auto 0.1 K/mm3 (0.0-0.1); Basophils Percent Auto 0.9 % (0.2-1.2); Eosinophils Absolute Auto 0.2 K/mm3 (0-0.3); Eosinophils Percent Auto 1.7 % (0-4.4); Hematocrit 40.3 % (42.0-52.0); Hemoglobin 13.1 g/dL (14.0-18.0); Immature Granulocyte Absolute 0.03 K/mm3 (0.00-0.031); Immature Granulocyte Percent A 0.3 % (0-0.5); Lymphocytes Absolute Auto 1.32 K/mm3 (0.9-3.2); Lymphocytes Percent Auto 14.2 % (18.3-44.2); Mean Corpuscular HGB Conc 32.5 g/dl (32-36); Mean Corpuscular Hemoglobin 30.5 pg (26-34); Mean Corpuscular Volume 93.9 fl (80-100); Mean Platelet Volume 10.8 fl (7.4-10.4); Monocytes Absolute Auto 1.1 K/mm3 (0.1-0.6); Monocytes Percent Auto 11.5 % (2.6-8.5); Neutrophils Absolute Auto 6.7 K/mm3 (1.3-6.7); Neutrophils Percent Auto 71.4 % (45.5-73.1); Platelet Count Result 211 k/mm3 (150-375); Red Blood Count 4.29 M/mm3 (4.6-6.20); Red Cell Distribution Width 14.2 % (11.5-14.5); White Blood Count 9.3 K/mm3 (4.5-10.0)
[2023-08-10 05:37] LABS: Partial Thromboplastin Time 75.4 SECONDS (22.3-36.8)
[2023-08-10 05:39] LABS: Alanine Aminotransferase 216 U/L (6-50); Albumin Level 3.8 g/dL (3.5-5.1); Alkaline Phosphatase 85 U/L (38-126); Anion Gap 7 mmol/L (8-16); Aspartate Amino Transferase 189 U/L (17-59); Bilirubin,Total 1.6 mg/dL (0.2-1.3); Blood Urea Nitrogen 16 mg/dL (9-20); Carbon Dioxide 29 mmol/L (22-30); Chloride 102 mmol/L (98-107); Estimated CRCL calculation 78 ml/min; Estimated Glomerular Filt Rate > 60; Glucose 107 mg/dL (65-110); Magnesium 1.8 mg/dL (1.6-2.3); Potassium 3.8 mmol/L (3.4-5.0); Sodium 138 mmol/L (137-145)
[2023-08-10] MEDS: PIPERACILLN/TAZ 3.375GM/NS50ML 3.375 GM/50 ML BAG IVPB ×2 (05:50→12:35)
[2023-08-10] MEDS: METOPROLOL TARTRATE 50 MG TAB PO (05:51)
[2023-08-10 06:01] LABS: Procalcitonin 0.1 ng/mL
[2023-08-10] MEDS: ASPIRIN 81 MG ENTERIC TABLET PO (09:22)
[2023-08-10] MEDS: SACUBITRIL/VALSARTAN 12-13 MG TABLET 1 TAB PO ×2 (09:22→20:53)
[2023-08-10] MEDS: CYCLOBENZAPRINE HCL 10 MG TABLET PO ×3 (09:22→17:13)
[2023-08-10] MEDS: LORATADINE 10 MG TABLET PO (09:23)
[2023-08-10] MEDS: MULTIVITAMINS /C LUTEIN (CENTRUM SILVER) TABLET *BKC 0.5 TAB PO ×2 (09:23→17:13)
[2023-08-10] MEDS: DIGOXIN 250 MCG TABLET PO (09:23)
[2023-08-10] MEDS: EMPAGLIFLOZIN 10 MG TABLET PO (09:24)
[2023-08-10] MEDS: PSYLLIUM POWDER PACKET 1 PACKET PO (09:24)
[2023-08-10] MEDS: HEPARIN SOD/D5W 100 UNITS/ML 25,000 UNITS/250 ML BAG 13 UNITS IV CONT (09:33)
[2023-08-10] MEDS: METOPROLOL TARTRATE 25 MG TABLET PO (09:45)
--- NOTE | 2023-08-10 10:05 | PM.PNCARD ---
Progress Note: A&P Assessment and Plan (1) Cardiomyopathy: Qualifiers: Cardiomyopathy type: other Qualified Code(s): I42.8 - Other cardiomyopathies Code(s): I42.9 - Cardiomyopathy, unspecified Status: Acute Assessment and Plan: New diagnosis of cardiomyopathy, etiology unknown. EF 15 - 20%. Will initiate guideline directed medical therapy with low-dose Entresto 12-13 mg b.i.d.. If blood pressure tolerates this, can advance to 24-26 mg b.i.d.. Continue Jardiance 10 mg daily. Patient is well compensated. Will hold off on adding spironolactone at this time. Continue metoprolol for cardiovascular support and controlled AFib. Will continue with metoprolol tartrate for now for titration with plans to transition to metoprolol succinate prior to discharge. Monitor blood pressure and renal function closely. Daily BMP Coronary angiogram on Saturday to rule out severe obstructive CAD as etiology. Continue heparin infusion. NPO after midnight Saturday night. Discussed this plan in detail the patient. All questions answered to his satisfaction. 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 However, CAD cannot be excluded and warrants definitive evaluation. Life vest for reduction in risk for sudden cardiac secondary to VT/VF for EF 20% has been ordered and will be placed prior to discharge. Explained risks, benefits, alternatives in this regard. Patient verbalized understanding and agreed. He appreciate our discussion and explanations. (2) Acute systolic heart failure: Code(s): I50.21 - Acute systolic (congestive) heart failure Status: Acute Assessment and Plan: Presents with progressive dyspnea, orthopnea, swelling, and PND now improved after IV Lasix. Improving with diuresis Change Lasix 40 mg p.o. daily. Patient is well compensated at present. Continue to monitor volume status closely. Daily weights Accurate intake and output CHF counseling. We also discussed limitations and risks associated with VT/VF and or sudden cardiac related to severe LV dysfunction need to avoid strenuous and or sexual activity until otherwise advised. (3) Atrial fibrillation with RVR: Code(s): I48.91 - Unspecified atrial fibrillation Status: Acute Assessment and Plan: This is a new diagnosis. Heart rate better but still suboptimally controlled. Rate control, and more directly, rhythm control important to stabilize CHF and maintain cardiac output and allow for LV systolic recovery. Continue with rate control strategy for now as duration of atrial fibrillation is not known. Clinical concern for tachycardia induced cardiomyopathy Continue metoprolol, but will shift to Toprol XL 50 mg daily Will order p.r.n. IV Lopressor Anticoagulation with DOAC after left heart catheterization on Saturday. Heparin gtt until then. Would recommend presybeterian of sinus rhythm as appropriate this hospitalization given his severe LV dysfunction if coronary angiography reveals a nonischemic etiology. He will require TRENT guided cardioversion to restore sinus rhythm if he remains in atrial fibrillation. Furthermore, I would consider addition of amiodarone for suppression of AFib the near future to observe for recovery in LV function. I also emphasized importance of compliance with medications as well as anticoagulation to reduce embolic stroke risk. We also discussed accordance bleeding risk and particular if he were to experience bleeding, falls and particular head injury he must present to the ER immediately for evaluation to exclude risk for potential catastrophic head bleed. He agrees and understands. (4) Elevated LFTs: Code(s): R79.89 - Other specified abnormal findings of blood chemistry Status: Acute Assessment and Plan: Likely secondary to passive congestion, lo
[2023-08-10 10:57] LABS: Partial Thromboplastin Time 47.6 SECONDS (22.3-36.8)
[2023-08-10] MEDS: HEPARIN SODIUM 5,000 UNITS/ML VIAL 7500 UNITS IV PUSH (12:37)
--- NOTE | 2023-08-10 14:16 | PM.IMPN ---
Progress Note: A&P Assessment and Plan (1) Acute systolic heart failure: Code(s): I50.21 - Acute systolic (congestive) heart failure Status: Acute (2) Transaminitis: Code(s): R74.01 - Elevation of levels of liver transaminase levels Status: Acute (3) Cardiomyopathy: Qualifiers: Cardiomyopathy type: other Qualified Code(s): I42.8 - Other cardiomyopathies Code(s): I42.9 - Cardiomyopathy, unspecified Status: Acute (4) Cholelithiasis: Code(s): K80.20 - Calculus of gallbladder without cholecystitis without obstruction Status: Acute Plan 58M w/ PMH CA, HTN. mother is present in room and gives the history as well. The patient had weeks of weakness, nausea, and nonbilious vomiting a few times. At night he also felt palpitations which awoke him from sleep. He finally decided to seek evaluation. Admitted on 08/08 for heart failure and new onset a fib 1) new onset a fib - dilt off now. on digoxin and metoprolol. rate controlled. otherwise, appreciate cardiology recs. - CTA neg for PE - TSH wnl - chadsvasc is 2. currently on heparin. change to doac after cath on saturday - 2d echo revealing severe global hypokinesis w/ EF 20% and diastolic dysfunction. 2) new onset acute decompensated HFrEF - appreciate cardiology recs, could be due to tachyarrhythmia, will need close mgmt ongoing as outpatient - plan is to continue lasix 2) leukocytosis - likely reactive or 2/2 to gallbladder issue. now resolved. 3) cholelithiasis - likely chronic. surgery plan for outpatient, will continue zosyn for now and cipro on discharge for 10 days - LFT's downtrending FEN: saline lock IV, cardiac diet GI prophylaxis: not indicated DVT prophylaxis: heparin. stop at midnight on 08/11 Lines: pIV Code Status: full code Dispo: stable More than 35 minutes spent on chart review, patient interaction and assessment and plan. Subjective Date/time seen: 08/10/23 14:16 Interval history: NAOE. pt is without complaints. he is willing to improve his diet and lifestyle to achieve weight loss. mother is in room, all questions answered. he does not have sob, chest pain, or leg swelling, pt aware of cath to be performed on saturday. counseled on avoiding nsaids, and reiterated the information given by cardiology about risks of blood thinners. Exam Const: General: comfortable Eyes: Pupils: Equal, round and reactive pupils present Resp: Effort & Inspection: normal respiratory effort Auscultation: clear to auscultation bilaterally Cardio: Rate: regular rate Rhythm: regular rhythm GI: GI Palp: Yes Soft to palpation Auscultation: normal bowel sounds Extrem: General: no edema Objective Data Vital Signs Vital Signs: Vital Signs - 24 hr 08/09/23 15:11 08/09/23 15:34 08/09/23 16:00 Temperature 98.2 F Pulse Rate 70 113 H Pulse Rate [With Activity During Therapy Session] 137 H Respiratory Rate 17 Blood Pressure 122/93 H Pulse Oximetry 95 Oxygen Delivery Room Air 08/09/23 16:00 08/09/23 18:00 08/09/23 20:34 Temperature Pulse Rate 116 H 142 H Pulse Rate [With Activity During Therapy Session] Respiratory Rate Blood Pressure Pulse Oximetry 95 Oxygen Delivery Room Air 08/09/23 20:00 08/09/23 21:09 08/09/23 21:10 Temperature 97.7 F Pulse Rate 142 H 129 H Pulse Rate [With Activity During Therapy Session] Respiratory Rate 20 Blood Pressure 102/70 98/81 L Pulse Oximetry 99 Oxygen Delivery 08/09/23 22:29 08/09/23 20:00 08/09/23 23:37 Temperature Pulse Rate 141 H Pulse Rate [With Activity During Therapy Session] Respiratory Rate Blood Pressure 121/81 Pulse Oximetry 95 Oxygen Delivery Room Air 08/09/23 23:15 08/10/23 00:00 08/09/23 20:00 Temperature 97.7 F Pulse Rate 117 H 126 H Pulse Rate [With Activity During Therapy Session] Respiratory Rate 20 Blood Pressure 105/80 Pulse Oximetry 98 98 Oxygen Del
[2023-08-10] MEDS: METOPROLOL TARTRATE 25 MG TABLET 75 MG PO ×2 (14:19→21:58)
--- NOTE | 2023-08-10 15:56 | PM.PNGS ---
Progress Note: A&P Assessment and Plan (1) Cholelithiasis: Code(s): K80.20 - Calculus of gallbladder without cholecystitis without obstruction Status: Acute Assessment and Plan: No abdominal pain or back pain today. Eating without problems. Patient will remain in the hospital until at least Saturday since he is having a cardiac catheterization on Saturday. On heparin drip. If coronary stent placed after catheterization on Saturday, patient may need to hold off on surgery for 6 months if remains with very few symptoms. Will be following up with Dr. Jarvis after discharge. No plans for cholecystectomy at this time. Subjective Subjective Date/Time Seen: 08/10/23 15:56 Patient reports: feels better (No back or abdominal pain), tolerating a regular diet, bowel movement and afebrile Interval history: Patient going to have cardiac catheterization on Saturday. No abdominal or back pain. Attributes lack of pain to being on heparin drip. Review of Systems Review of Systems: All systems reviewed & are unremarkable except as noted in HPI and below (HPI) Exam Const: General: healthy appearing, comfortable, no acute distress, alert and awake Orientation/consciousness: patient oriented x3 GI: Inspection: normal to inspection, non-distended and no visible herniation GI Palp: Yes Soft to palpation, No Tenderness to palpation present (GI), No Guarding due to palpation present (GI) and No Rebound tenderness present Auscultation: normal bowel sounds Neuro: General: patient oriented x3 and no focal motor deficits Extrem: General: no calf tenderness and no edema Psych: Affect: normal affect Insight: Good insight present (Psych) Judgement: Good judgement present (Psych) Objective Data Vital Signs Vital Signs: Vital Signs - 24 hr 08/09/23 16:00 08/09/23 16:00 08/09/23 18:00 Temperature Pulse Rate 113 H 116 H Respiratory Rate Blood Pressure Pulse Oximetry 95 Oxygen Delivery Room Air 08/09/23 20:34 08/09/23 20:00 08/09/23 21:09 Temperature 36.5 C Pulse Rate 142 H 142 H 129 H Respiratory Rate 20 Blood Pressure 102/70 Pulse Oximetry 99 Oxygen Delivery 08/09/23 21:10 08/09/23 22:29 08/09/23 20:00 Temperature Pulse Rate Respiratory Rate Blood Pressure 98/81 L 121/81 Pulse Oximetry 95 Oxygen Delivery Room Air 08/09/23 23:37 08/09/23 23:15 08/10/23 00:00 Temperature 36.5 C Pulse Rate 141 H 117 H Respiratory Rate 20 Blood Pressure 105/80 Pulse Oximetry 98 98 Oxygen Delivery Room Air 08/09/23 20:00 08/09/23 22:00 08/10/23 00:00 Temperature Pulse Rate 126 H 131 H 116 H Respiratory Rate Blood Pressure Pulse Oximetry Oxygen Delivery 08/10/23 03:27 08/10/23 02:00 08/10/23 04:00 Temperature 36.1 C L Pulse Rate 98 107 H 107 H Respiratory Rate 20 Blood Pressure 108/71 Pulse Oximetry 97 Oxygen Delivery 08/10/23 04:00 08/10/23 04:00 08/10/23 05:51 Temperature Pulse Rate 96 109 H Respiratory Rate Blood Pressure Pulse Oximetry 97 Oxygen Delivery Room Air 08/10/23 06:00 08/10/23 08:00 08/10/23 08:35 Temperature 36.3 C L Pulse Rate 103 H 100 Respiratory Rate 16 Blood Pressure 119/66 Pulse Oximetry 98 Oxygen Delivery Room Air 08/10/23 09:23 08/10/23 09:45 08/10/23 11:04 Temperature Pulse Rate 110 H 108 H Respiratory Rate Blood Pressure Pulse Oximetry 94 Oxygen Delivery Room Air 08/10/23 08:00 08/10/23 10:00 08/10/23 12:00 Temperature 36.6 C Pulse Rate 113 H 108 H 107 H Respiratory Rate 18 Blood Pressure 104/81 Pulse Oximetry 98 Oxygen Delivery 08/10/23 14:19 08/10/23 12:00 08/10/23 14:00 Temperature Pulse Rate 111 H 114 H 102 H Respiratory Rate Blood Pressure Pulse Oximetry Oxygen Delivery Intake/Output Intake/Output: Intake & Output 08/07/23 08/08/23 08/09/23 08/10/23 23:59 23:59 23:59 23:59 Intake To
[2023-08-10 19:37] LABS: Partial Thromboplastin Time 124.3 SECONDS (22.3-36.8)
[2023-08-10] MEDS: PRAVASTATIN SODIUM 20 MG TABLET PO (20:54)
[2023-08-10] MEDS: OMEGA 3 POLYUNSAT FATTY ACIDS 1 GM CAP PO (20:55)
[2023-08-11] VITALS (17 sets, daily range): BP systolic 105–121; BP diastolic 65–98; PULSE 80–156; RESP 14–20; TEMP 36.2–36.5; O2SAT 93–100
[2023-08-11] MEDS: HEPARIN SOD/D5W 100 UNITS/ML 25,000 UNITS/250 ML BAG 15 UNITS IV CONT (01:26)
[2023-08-11] MEDS: PIPERACILLN/TAZ 3.375GM/NS50ML 3.375 GM/50 ML BAG IVPB ×2 (01:28→05:44)
[2023-08-11 05:10] LABS: Partial Thromboplastin Time 84.3 SECONDS (22.3-36.8)
[2023-08-11 05:13] LABS: Anion Gap 8 mmol/L (8-16); Blood Urea Nitrogen 12 mg/dL (9-20); Calcium 9.2 mg/dL (8.4-10.2); Carbon Dioxide 24 mmol/L (22-30); Chloride 105 mmol/L (98-107); Estimated CRCL calculation 105 ml/min; Estimated Glomerular Filt Rate > 60; Glucose 105 mg/dL (65-110); Potassium 3.6 mmol/L (3.4-5.0); Sodium 137 mmol/L (137-145)
[2023-08-11] MEDS: METOPROLOL TARTRATE 25 MG TABLET 75 MG PO (05:42)
[2023-08-11] MEDS: EMPAGLIFLOZIN 10 MG TABLET PO (08:48)
[2023-08-11] MEDS: LORATADINE 10 MG TABLET PO (08:49)
[2023-08-11] MEDS: ASPIRIN 81 MG ENTERIC TABLET PO (08:49)
[2023-08-11] MEDS: CYCLOBENZAPRINE HCL 10 MG TABLET PO ×3 (08:49→16:35)
[2023-08-11] MEDS: MULTIVITAMINS /C LUTEIN (CENTRUM SILVER) TABLET *BKC 0.5 TAB PO ×2 (08:49→16:35)
[2023-08-11] MEDS: PSYLLIUM POWDER PACKET 1 PACKET PO (08:50)
[2023-08-11] MEDS: SACUBITRIL/VALSARTAN 12-13 MG TABLET 1 TAB PO ×2 (08:50→21:17)
[2023-08-11] MEDS: DIGOXIN 250 MCG TABLET PO (08:50)
--- NOTE | 2023-08-11 11:04 | PM.IMPN ---
Progress Note: A&P Assessment and Plan (1) Cholelithiasis: Code(s): K80.20 - Calculus of gallbladder without cholecystitis without obstruction Status: Acute (2) Cardiomyopathy: Qualifiers: Cardiomyopathy type: other Qualified Code(s): I42.8 - Other cardiomyopathies Code(s): I42.9 - Cardiomyopathy, unspecified Status: Acute (3) Acute systolic heart failure: Code(s): I50.21 - Acute systolic (congestive) heart failure Status: Acute (4) Transaminitis: Code(s): R74.01 - Elevation of levels of liver transaminase levels Status: Acute (5) Atrial fibrillation with RVR: Code(s): I48.91 - Unspecified atrial fibrillation Status: Acute Plan 58M w/ PMH CT, HTN. mother is present in room and gives the history as well. The patient had weeks of weakness, nausea, and nonbilious vomiting a few times. At night he also felt palpitations which awoke him from sleep. He finally decided to seek evaluation. Admitted on 08/08 for heart failure and new onset a fib 1) new onset a fib - dilt off now. on digoxin and metoprolol. rate controlled. otherwise, appreciate cardiology recs. - CTA neg for PE - TSH wnl - chadsvasc is 2. currently on heparin. change to doac after cath on saturday - 2d echo revealing severe global hypokinesis w/ EF 20% and diastolic dysfunction. 2) new onset acute decompensated HFrEF - appreciate cardiology recs, could be due to tachyarrhythmia, will need close mgmt ongoing as outpatient - plan is to continue lasix 3) leukocytosis - likely reactive or 2/2 to gallbladder issue. now resolved. 4) cholelithiasis - likely chronic. surgery plan for outpatient, zosyn switched to ciprofloxacin - LFT's downtrending, continue to trend 5) CAD and HLD - cont statin and aspirin FEN: saline lock IV, cardiac diet, NPO at midnight GI prophylaxis: not indicated DVT prophylaxis: heparin. Lines: pIV Code Status: full code Dispo: stable medication review and education containing 25 minutes of discussion held with pt and mom. plan is to hold coreg, lisinopril, and d'c meloxicam on dc unless anything changes. More than 35 minutes spent on chart review, patient interaction and assessment and plan. Subjective Date/time seen: 08/11/23 11:04 Interval history: NAOE. pt reports feeling much healthier today with more energy, despite his heart rating being high. mother is in room. discussion conducted on medication review as requested by the pt. he denies SOB Review of Systems Review of Systems: All systems reviewed & are unremarkable except as noted in HPI and below Exam Const: General: comfortable and no acute distress Eyes: Pupils: Equal, round and reactive pupils present Neck: Neck: supple Resp: Effort & Inspection: normal respiratory effort Auscultation: rales (scant, diffuse) Cardio: Rate: tachycardic Rhythm: abnormal rhythm GI: GI Palp: Yes Soft to palpation and No Tenderness to palpation present (GI) Auscultation: normal bowel sounds Extrem: General: no edema Objective Data Vital Signs Vital Signs: Vital Signs - 24 hr 08/10/23 12:00 08/10/23 14:19 08/10/23 12:00 Temperature 97.8 F Pulse Rate 107 H 111 H 114 H Respiratory Rate 18 Blood Pressure 104/81 Pulse Oximetry 98 08/10/23 14:00 08/10/23 16:00 08/10/23 16:00 Temperature 97.6 F Pulse Rate 102 H 93 97 Respiratory Rate 16 Blood Pressure 104/67 Pulse Oximetry 98 08/10/23 19:54 08/10/23 20:00 08/10/23 21:58 Temperature 97.8 F Pulse Rate 53 L 114 H 102 H Respiratory Rate 20 Blood Pressure 144/86 H Pulse Oximetry 100 08/10/23 22:00 08/10/23 23:06 08/11/23 00:00 Temperature 98 F Pulse Rate 112 H 101 H 103 H Respiratory Rate 20 Blood Pressure 100/68 Pulse Oximetry 100 08/11/23 02:00 08/11/23 04:00 08/11/23 04:00 Temperature 97.5 F L Pulse Rate 96 104 H 110 H Respiratory Rate 16 Blood Pressure 105/83 Pulse Oximetry 9
[2023-08-11 11:12] LABS: Partial Thromboplastin Time 65.1 SECONDS (22.3-36.8)
[2023-08-11] MEDS: HEPARIN SODIUM 5,000 UNITS/ML VIAL 4000 UNITS IV PUSH (11:46)
[2023-08-11] MEDS: CIPROFLOXACIN 500 MG TAB PO ×2 (11:48→21:16)
--- NOTE | 2023-08-11 12:01 | PM.PNCARD ---
Progress Note: A&P Assessment and Plan (1) Cardiomyopathy: Qualifiers: Cardiomyopathy type: other Qualified Code(s): I42.8 - Other cardiomyopathies Code(s): I42.9 - Cardiomyopathy, unspecified Status: Acute Assessment and Plan: New diagnosis of cardiomyopathy, etiology unknown. EF 15 - 20%. Continue guideline directed medical therapy with low-dose Entresto 12-13 mg b.i.d., Jardiance 10 mg daily.. Continue Jardiance 10 mg daily. Patient is well compensated. Will hold off on adding spironolactone at this time. Continue metoprolol for cardiovascular support and controlled AFib. Will continue with metoprolol tartrate for now for titration with plans to transition to metoprolol succinate prior to discharge. Monitor blood pressure and renal function closely. Daily BMP. Renal function stable thus far as are electrolytes. Life vest for reduction in risk for sudden cardiac secondary to VT/VF for EF 20% has been ordered and will be placed prior to discharge. Explained risks, benefits, alternatives in this regard. Patient verbalized understanding and agreed. He appreciate our discussion and explanations. NPO after midnight tonight. Coronary angiogram on Saturday to rule out severe obstructive CAD as etiology. Continue heparin infusion. NPO after midnight Saturday night. Discussed this plan in detail the patient. All questions answered to his satisfaction. 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 However, CAD cannot be excluded and warrants definitive evaluation. We discussed this at length once again. Heparin to be held on-call [facility]. (2) Atrial fibrillation with RVR: Code(s): I48.91 - Unspecified atrial fibrillation Status: Acute Assessment and Plan: This is a new diagnosis. Heart rate better but still suboptimally controlled. Rate control, and more directly, rhythm control important to stabilize CHF and maintain cardiac output and allow for LV systolic recovery. Continue with rate control strategy for now as duration of atrial fibrillation is not known. Clinical concern for tachycardia induced cardiomyopathy Anticoagulation with DOAC after left heart catheterization on Saturday. Heparin gtt until then. Would recommend mu-ism of sinus rhythm as appropriate this hospitalization given his severe LV dysfunction if coronary angiography reveals a nonischemic etiology. He will require TRENT guided cardioversion to restore sinus rhythm if he remains in atrial fibrillation. Furthermore, I would consider addition of amiodarone for suppression of AFib the near future to observe for recovery in LV function. I also emphasized importance of compliance with medications as well as anticoagulation to reduce embolic stroke risk. We also discussed accordance bleeding risk and particular if he were to experience bleeding, falls and particular head injury he must present to the ER immediately for evaluation to exclude risk for potential catastrophic head bleed. He agrees and understands. Increase metoprolol to 100 mg q.8 hours. Continue digoxin 0.25 mg daily. However prefer to utilize digoxin very short-term basis anticipate we may be able to discontinue prior to discharge if he undergoes TRENT guided cardioversion successfully during this hospitalization. Check digoxin level in a.m.. Keep level less than 1.0. Prior to discharge, transition to Toprol XL. (3) Acute systolic heart failure: Code(s): I50.21 - Acute systolic (congestive) heart failure Status: Acute Assessment and Plan: Presents with progressive dyspnea, orthopnea, swelling, and PND now improved after IV Lasix. Continue Entresto 12/13 mg twice daily, Jardiance 10 mg daily. Resume Lasix 20 mg daily as I strongly suspect he will require at least some ongoing diuresis. He is not currently on Las
--- NOTE | 2023-08-11 12:51 | PM.PNGS ---
Progress Note: A&P Assessment and Plan (1) Cholelithiasis: Qualifiers: Cholelithiasis location: gallbladder Cholecystitis presence: without cholecystitis Biliary obstruction: without biliary obstruction Qualified Code(s): K80.20 - Calculus of gallbladder without cholecystitis without obstruction Code(s): K80.20 - Calculus of gallbladder without cholecystitis without obstruction Status: Chronic Assessment and Plan: No symptoms of cholecystitis either yesterday or today. Tolerating low-fat diet well. (2) Atrial fibrillation with RVR: Code(s): I48.91 - Unspecified atrial fibrillation Status: Acute Assessment and Plan: Rate in the low 100s with beta-blockers. (3) Cardiomyopathy: Qualifiers: Cardiomyopathy type: other Qualified Code(s): I42.8 - Other cardiomyopathies Code(s): I42.9 - Cardiomyopathy, unspecified Status: Acute Assessment and Plan: Ejection fraction 15-20% (4) Acute systolic heart failure: Code(s): I50.21 - Acute systolic (congestive) heart failure Status: Acute Assessment and Plan: Patient to have cardiac catheterization on Saturday. Subjective Subjective Date/Time Seen: 08/11/23 12:51 Patient reports: feels better (Feels great again today.), tolerating a regular diet, bowel movement and afebrile Review of Systems Review of Systems: All systems reviewed & are unremarkable except as noted in HPI and below (HPI) Exam Const: General: cooperative, healthy appearing, comfortable, no acute distress, alert, awake and Physically active Nutritional Appearance: average body habitus Orientation/consciousness: patient oriented x3 GI: Inspection: normal to inspection, non-distended and no scars GI Palp: Yes Soft to palpation, No Tenderness to palpation present (GI), No Hernia present and No Palpable mass present Objective Data Vital Signs Vital Signs: Vital Signs - 24 hr 08/10/23 14:19 08/10/23 14:00 08/10/23 16:00 Temperature 36.4 C Pulse Rate 111 H 102 H 93 Respiratory Rate 16 Blood Pressure 104/67 Pulse Oximetry 98 08/10/23 16:00 08/10/23 19:54 08/10/23 20:00 Temperature 36.6 C Pulse Rate 97 53 L 114 H Respiratory Rate 20 Blood Pressure 144/86 H Pulse Oximetry 100 08/10/23 21:58 08/10/23 22:00 10/28/23 23:06 Temperature 36.6 C Pulse Rate 102 H 112 H 101 H Respiratory Rate 20 Blood Pressure 100/68 Pulse Oximetry 100 08/11/23 00:00 08/11/23 02:00 08/11/23 04:00 Temperature Pulse Rate 103 H 96 104 H Respiratory Rate Blood Pressure Pulse Oximetry 08/11/23 04:00 08/11/23 05:42 08/11/23 06:00 Temperature 36.4 C L Pulse Rate 110 H 106 H 105 H Respiratory Rate 16 Blood Pressure 105/83 Pulse Oximetry 93 08/11/23 08:50 08/11/23 08:00 08/11/23 12:00 Temperature 36.2 C L 36.5 C Pulse Rate 127 H 108 H 116 H Respiratory Rate 16 18 Blood Pressure 121/98 H 106/65 Pulse Oximetry 98 100 08/11/23 08:00 08/11/23 10:00 08/11/23 12:00 Temperature Pulse Rate 100 103 H 145 H Respiratory Rate Blood Pressure Pulse Oximetry Intake/Output Intake/Output: Intake & Output 08/08/23 08/09/23 08/10/23 08/11/23 23:59 23:59 23:59 23:59 Intake Total 2100 1040 3970 940 Output Total 0119 1158 6604 Balance 788 -4597 -1134 987 Meds/Results Medications: Active Medications Generic Name Dose Route Start Last Admin Trade Name Freq PRN Reason Stop Dose Admin Acetaminophen 650 mg 08/08/23 17:51 Acetaminophen 325 Mg Tablet PO Q6H PRN Mild Pain (1-3) or Fever Hydrocodone Bitart/Acetaminophen 1 tab 08/08/23 17:51 08/08/23 18:14 Hydrocodone/Acetaminophen (*Crx) 10-325 Mg Tablet PO 1 tab Q6H PRN Administration Pain Rated 4-6 Aspirin 81 mg 08/09/23 09:00 08/11/23 08:49 Aspirin 81 Mg Enteric Tablet PO 81 mg QAM CIRO Administration Ciprofloxacin 500 mg 08/11/23 12:00 08/11/23
[2023-08-11] MEDS: METOPROLOL TARTRATE 50 MG TAB 100 MG PO ×2 (13:40→21:21)
[2023-08-11 19:11] LABS: Partial Thromboplastin Time 93.2 SECONDS (22.3-36.8)
[2023-08-11] MEDS: PRAVASTATIN SODIUM 20 MG TABLET PO (21:16)
[2023-08-11] MEDS: OMEGA 3 POLYUNSAT FATTY ACIDS 1 GM CAP PO (21:17)
[2023-08-12] VITALS (33 sets, daily range): BP systolic 96–123; BP diastolic 68–99; PULSE 58–135; RESP 10–25; TEMP 36.2–36.7; O2SAT 89–100
[2023-08-12 01:48] LABS: Partial Thromboplastin Time 120.9 SECONDS (22.3-36.8)
[2023-08-12] MEDS: METOPROLOL TARTRATE 50 MG TAB 100 MG PO ×3 (06:00→21:12)
[2023-08-12 07:56] LABS: Hematocrit 47.1 % (42.0-52.0); Mean Corpuscular HGB Conc 31.8 g/dl (32-36); Mean Corpuscular Hemoglobin 30.5 pg (26-34); Mean Corpuscular Volume 95.7 fl (80-100); Mean Platelet Volume 9.8 fl (7.4-10.4); Platelet Count Result 274 k/mm3 (150-375); Red Blood Count 4.92 M/mm3 (4.6-6.20); Red Cell Distribution Width 14.5 % (11.5-14.5); White Blood Count 9.5 K/mm3 (4.5-10.0)
[2023-08-12 08:07] LABS: INR 1.3; Prothrombin Time 16.5 Seconds (11.1-14.7)
[2023-08-12 08:09] LABS: Alanine Aminotransferase 104 U/L (6-50); Albumin Level 3.9 g/dL (3.5-5.1); Alkaline Phosphatase 82 U/L (38-126); Anion Gap 5 mmol/L (8-16); Aspartate Amino Transferase 49 U/L (17-59); Blood Urea Nitrogen 13 mg/dL (9-20); Calcium 9.2 mg/dL (8.4-10.2); Carbon Dioxide 27 mmol/L (22-30); Chloride 105 mmol/L (98-107); Estimated CRCL calculation 105 ml/min; Estimated Glomerular Filt Rate > 60; Glucose 118 mg/dL (65-110); Magnesium 2.1 mg/dL (1.6-2.3); Partial Thromboplastin Time 86.8 SECONDS (22.3-36.8); Sodium 137 mmol/L (137-145)
[2023-08-12 08:24] LABS: Digoxin 0.5 ng/mL (0.8-2.0)
[2023-08-12] MEDS: MULTIVITAMINS /C LUTEIN (CENTRUM SILVER) TABLET *BKC 0.5 TAB PO ×2 (08:26→17:22)
[2023-08-12] MEDS: SACUBITRIL/VALSARTAN 12-13 MG TABLET 1 TAB PO ×2 (08:27→20:32)
[2023-08-12] MEDS: CIPROFLOXACIN 500 MG TAB PO ×2 (08:27→20:32)
[2023-08-12] MEDS: CYCLOBENZAPRINE HCL 10 MG TABLET PO ×3 (08:27→17:22)
[2023-08-12] MEDS: EMPAGLIFLOZIN 10 MG TABLET PO (08:27)
[2023-08-12] MEDS: LORATADINE 10 MG TABLET PO (08:28)
[2023-08-12] MEDS: DIGOXIN 250 MCG TABLET PO (08:31)
--- NOTE | 2023-08-12 09:21 | WPDMODSED ---
Moderate Sedation Note-Pt Data Patient Data Diagnosis: atrial fibrillation of unknown chronicity left ventricular systolic dysfunction Present Complaint: no complaints today Procedure to be performed/Plan: left heart catheterization Allergies Allergy/AdvReac Type Severity Reaction Status Date / Time No Known Allergies Allergy Verified 08/07/23 16:52 Home Medications Medication Instructions Recorded Confirmed Type aspirin 81 mg tablet,delayed 81 tablet PO DAILY 03/14/22 08/08/23 History release carvedilol 3.125 mg tablet 3.125 mg PO HS 03/14/22 08/08/23 History cyclobenzaprine 10 mg tablet 10 tablet PO TID 03/14/22 08/08/23 History fluticasone propionate 50 1 ea intranasal HS 03/14/22 08/08/23 History mcg/actuation nasal spray,suspension lisinopril 5 mg tablet 5 mg PO HS 03/14/22 08/08/23 History meloxicam 7.5 mg tablet 7.5 mg PO HS 03/14/22 08/08/23 History pravastatin 20 mg tablet 20 mg PO HS 03/14/22 08/08/23 History cetirizine 10 mg capsule (Zyrtec) 10 mg PO DAILY 03/12/23 08/08/23 History glucosamine-chondroitin 250 mg-200 1 tablet PO HS 03/12/23 08/08/23 History mg tablet (Osteo Bi-Flex) nitroglycerin 0.4 mg sublingual 0.4 mg sublingual Q5M PRN Chest 03/12/23 08/08/23 History tablet (Nitrostat) Pain omega 0-ghh-fus-fish oil 60 mg-90 1 cap PO HS 03/12/23 08/08/23 History mg-500 mg capsule (Fish Oil) oxymetazoline 0.05 % nasal spray 2 spray intranasal Q12H PRN 03/12/23 08/08/23 History (Afrin (oxymetazoline)) Congestion bersera-aowxdamov-wquc 333 mg-133 1 tablet PO HS 08/08/23 08/08/23 History mg-5 mg tablet multivit with minerals-iron 18 0.5 tablet PO BID 08/08/23 08/08/23 History mg-folic ac 400 mcg-vit K 25 mcg tablet (Adults Multivitamin) Current Medications: Active Medications Acetaminophen (Acetaminophen 325 Mg Tablet) 650 mg PO Q6H PRN PRN Reason: Mild Pain (1-3) or Fever Hydrocodone Bitart/Acetaminophen (Hydrocodone/Acetaminophen (*Crx) 10-325 Mg Tablet) 1 tab PO Q6H PRN PRN Reason: Pain Rated 4-6 Last Admin: 08/08/23 18:14 Dose: 1 tab Aspirin (Aspirin 81 Mg Enteric Tablet) 81 mg PO QAM [facility] Last Admin: 08/11/23 08:49 Dose: 81 mg Ciprofloxacin (Ciprofloxacin 500 Mg Tab) 500 mg PO Q12HR [facility] Last Admin: 08/12/23 08:27 Dose: 500 mg Cyclobenzaprine HCl (Cyclobenzaprine Hcl 10 Mg Tablet) 10 mg PO TID [facility] Last Admin: 08/12/23 08:27 Dose: 10 mg Digoxin (Digoxin 250 Mcg Tablet) 250 mcg PO QAM [facility] Last Admin: 08/12/23 08:31 Dose: 250 mcg Docusate Sodium (Docusate Sodium 100 Mg Capsule) 200 mg PO Q12H PRN PRN Reason: Constipation Empagliflozin (Empagliflozin 10 Mg Tablet) 10 mg PO DAILY [facility] Last Admin: 08/12/23 08:27 Dose: 10 mg Fish Oil (Aurora 3 Polyunsat Fatty Acids 1 Gm Cap) 1 gm PO HS [facility] Stop: 09/07/23 20:59 Last Admin: 08/11/23 21:17 Dose: 1 gm Furosemide (Furosemide 20 Mg Tablet) 20 mg PO DAILY [facility] Heparin Sodium (Porcine) (Heparin Sodium 5,000 Units/Ml Vial) 7,500 units IV PUSH PRN PRN PRN Reason: aPTT less than 55 seconds Last Admin: 08/10/23 12:37 Dose: 7,500 units Heparin Sodium (Porcine) (Heparin Sodium 5,000 Units/Ml Vial) 4,000 units IV PUSH PRN PRN PRN Reason: aPTT 55 - 70 seconds Last Admin: 08/11/23 11:46 Dose: 4,000 units Heparin Sodium/Dextrose (Heparin Sodium/D5w 100 Units/Ml) 25,000 units in 250 mls @ 15 mls/hr IV CONT .[id number] [facility]; Protocol Last Titration: 08/12/23 08:25 Dose: 1,500 units/hr, 15 mls/hr Loratadine (Loratadine 10 Mg Tablet) 10 mg PO DAILY [facility] Stop: 09/08/23 08:59 Last Admin: 08/12/23 08:28 Dose: 10 mg Metoprolol Tartrate (Metoprolol Tartrate Inj 5 Mg/5 Ml Vial) 5 mg IV PUSH Q4H PRN PRN Reason: Tachycardia Metoprolol Tartrate (Metoprolol Tartrate 50 Mg Tab) 100 mg PO Q8HR [facility] Last Admin: 08/12/23 06:00 Dose: 100 mg Multivitamins/Minerals (Multivitamins /C Lutein (Centrum Silver) Tablet *Bkc) 0.5 tab PO BID [facility] Last Admin: 08/12/23 08:26 Dose: 0.5 tab Non-For
[2023-08-12] MEDS: ASPIRIN 81 MG ENTERIC TABLET PO (09:35)
--- NOTE | 2023-08-12 10:26 | P.PCNCC_ITS ---
Cardiac Cath Procedure Note Date of procedure:: 08/12/23 Performing physician:: Driss Larson MD Indication:: left ventricular systolic dysfunction atrial fibrillation with RVR Brief clinical history:: this is a 58-year-old man presenting with new onset heart failure and atrial fib with rapid ventricular response. He has been treated medically with improvement. Catheterization has been recommended to rule out ischemic LV dysfunction Procedure Procedure performed:: left ventriculogram coronary angiogram Sedation/Medication given:: fentanyl 50 mg Versed 2 mg case start time 9:56 a.m. case end time 10:21 a.m. sedation provided by Idania Salinas RN trained observer Access site:: right femoral artery Estimated blood loss:: 20 cc Procedure note:: patient was brought to the cardiac catheterization lab in the postabsorptive state where the right femoral triangle was prepared and draped usual fashion. Anesthesia was given with 1% lidocaine infiltrated locally. In the modified Seldinger technique the right femoral artery was punctured and a 5 Bulgarian vascular sheath was placed. During attempts at vascular access the patient jerked uncontrollably under the drape and violated the sterile field. The procedure was then interrupted the area was re-prepped and redraped. Following this left heart catheterization was carried out. A 5 Bulgarian angled pigtail catheter was used to document left-sided hemodynamics and to perform a left ventriculogram in the ORONA projection. Following this the left coronary artery and right coronary arteries were engaged selectively using standard 5 Bulgarian FL4 and JR4 catheters. Cineangiograms were then removed and the case was terminated. The patient was taken to the holding area for direct manual sheath removal. Procedure was well tolerated and uncomplicated. There was no sign of groin hematoma when he left the cardiac catheterization lab. Findings:: Hemodynamics: Central aortic pressure is 104 over 64 left ventricle 104/15 end-diastolic pressure 18 there is no gradient on pullback across the aortic valve. Left ventricle: The LV is moderately dilated there is severe global hypocontractility identified with a visually estimated ejection fraction of 15%. The left main coronary artery is unremarkable the left anterior descending is a moderate caliber artery extending down to around the apex. The LAD and its branches are smooth and normal in appearance circumflex is a medium caliber artery giving rise to the marginal branches. The circumflex is smooth and angiographically normal in appearance the right coronary artery is moderate caliber and dominant to the posterior circulation. It but does bifurcate early in between the 2nd and 3rd portion of the RCA. The right coronary artery is angiographically normal in appearance Conclusion:: 1. right coronary dominant circulation with no angiographic evidence of coronary artery disease 2. severe left ventricular systolic dysfunction with very low ejection fraction presumably a tachycardia mediated cardiomyopathy Driss Larson MD LOCATED WITHIN [facility]
--- NOTE | 2023-08-12 10:54 | PCPTNOTE ---
The patient treatment was not able to be completed on 08/12/2023 due to patient out of room for procedure. Will plan to continue treatment per plan of care.
--- NOTE | 2023-08-12 13:57 | PM.IMPN ---
Progress Note: A&P Assessment and Plan (1) Acute systolic heart failure: Code(s): I50.21 - Acute systolic (congestive) heart failure Status: Acute (2) Cardiomyopathy: Qualifiers: Cardiomyopathy type: other Qualified Code(s): I42.8 - Other cardiomyopathies Code(s): I42.9 - Cardiomyopathy, unspecified Status: Acute (3) Transaminitis: Code(s): R74.01 - Elevation of levels of liver transaminase levels Status: Acute (4) Elevated LFTs: Code(s): R79.89 - Other specified abnormal findings of blood chemistry Status: Acute (5) Cholelithiasis: Qualifiers: Cholelithiasis location: gallbladder Cholecystitis presence: without cholecystitis Biliary obstruction: without biliary obstruction Qualified Code(s): K80.20 - Calculus of gallbladder without cholecystitis without obstruction Code(s): K80.20 - Calculus of gallbladder without cholecystitis without obstruction Status: Chronic (6) Atrial fibrillation with RVR: Code(s): I48.91 - Unspecified atrial fibrillation Status: Acute Plan 58M w/ PMH PA, HTN. His mother has been present everyday. The patient had weeks of weakness, nausea, and nonbilious vomiting a few times. At night he also felt palpitations which awoke him from sleep. He finally decided to seek evaluation. Admitted on 08/08 for heart failure and new onset a fib 1) new onset a fib with RVR - dilt off now. on digoxin and metoprolol. metoprolol increased over the past 2 days, still in RVR 110's and 120's. will appreciate cardiology recs on further mgmt for better control. - CTA neg for PE - TSH wnl - chadsvasc is 2. currently on heparin. switch to DOAC at guidance of cardiology. - 2d echo revealing severe global hypokinesis w/ EF 20% and diastolic dysfunction. s/p LHC RHC via right fem on 08/12, no CAD visualized. 2) new onset acute decompensated HFrEF, resolved. - appreciate cardiology recs, could be due to tachyarrhythmia, will need close mgmt ongoing as outpatient - plan is to continue lasix 20mg po qday 3) leukocytosis, resolved. - likely reactive or 2/2 to gallbladder issue. 4) cholelithiasis - likely chronic. surgery plan for outpatient, zosyn switched to ciprofloxacin until 08/17 - LFT's downtrended 5) CAD and HLD - cont statin and aspirin FEN: saline lock IV, cardiac diet GI prophylaxis: not indicated DVT prophylaxis: heparin gtt Lines: pIV Code Status: full code Dispo: stable More than 25 minutes spent on chart review, patient interaction and assessment and plan. Subjective Date/time seen: 08/12/23 13:57 Interval history: NAOE. he is a few hours post cath via right femoral. no CAD identified. he has no complaints, neither does his mother, which has been the story for the past several days. Review of Systems Review of Systems: All systems reviewed & are unremarkable except as noted in HPI and below Exam Const: General: comfortable and no acute distress HENMT: Mouth: Yes moist mucous membranes Eyes: Pupils: Equal, round and reactive pupils present Neck: Neck: supple Resp: Effort & Inspection: normal respiratory effort Auscultation: clear to auscultation bilaterally Cardio: Rate: tachycardic Rhythm: abnormal rhythm Heart sounds: no gallops, no murmurs and no rubs GI: Inspection: non-distended GI Palp: Yes Soft to palpation and No Tenderness to palpation present (GI) Auscultation: normal bowel sounds : Male General Exam: No ecchymosis, No erythema and No tenderness Extrem: General: no edema Objective Data Vital Signs Vital Signs: Vital Signs - 24 hr 08/11/23 16:00 08/11/23 14:00 08/11/23 16:00 Temperature 97.1 F L Pulse Rate 112 H 130 H 121 H Respiratory Rate 14 Blood Pressure 114/75 Pulse Oximetry 100 Oxygen Delivery Oxygen Flow Rate 08/11/23 18:00 08/11/23 20:10 08/11/23 20:00 Temperature 97.7 F Pulse Rate 107 H 112 H Respiratory Rate 20 Blood
--- NOTE | 2023-08-12 15:08 | PM.PNGS ---
Progress Note: A&P Assessment and Plan (1) Cholelithiasis: Qualifiers: Cholelithiasis location: gallbladder Cholecystitis presence: without cholecystitis Biliary obstruction: without biliary obstruction Qualified Code(s): K80.20 - Calculus of gallbladder without cholecystitis without obstruction Code(s): K80.20 - Calculus of gallbladder without cholecystitis without obstruction Status: Chronic Assessment and Plan: No symptoms of cholecystitis over the weekend or today. Cardiac catheterization showed no angiographic evidence of coronary artery disease. Ejection fraction 15%. We would recommend continuing a low fat diet and he can be discharged when medically stable. We will have the patient follow-up with Dr. Jarvis in a few weeks after discharge to discuss scheduling a laparoscopic cholecystectomy as an outpatient. This will allow time for him to be medically optimized prior to surgery. (2) Atrial fibrillation with RVR: Code(s): I48.91 - Unspecified atrial fibrillation Status: Acute (3) Cardiomyopathy: Qualifiers: Cardiomyopathy type: other Qualified Code(s): I42.8 - Other cardiomyopathies Code(s): I42.9 - Cardiomyopathy, unspecified Status: Acute Assessment and Plan: Ejection fraction 15 with cardiac cath today. Continue management per Cardiology. (4) Acute systolic heart failure: Code(s): I50.21 - Acute systolic (congestive) heart failure Status: Acute Assessment and Plan: Patient to have cardiac catheterization on Saturday. Plan I have discussed the patient's case and plan of care with Dr. Jarvis. Subjective Subjective Date/Time Seen: 08/12/23 15:08 Patient reports: no new complaints Interval history: Chart reviewed since last seen. He had a cardiac cath today. He is now back in his room in IMU and doing well. He denies any abdominal pain, nausea, or vomiting. He reports tolerating his diet over the weekend without any issues. Cardiac cath with no evidence of coronary artery disease, EF estimated 15%. Exam Const: General: no acute distress and awake GI: Inspection: non-distended GI Palp: Yes Soft to palpation, No Tenderness to palpation present (GI) and No Guarding due to palpation present (GI) Auscultation: normal bowel sounds Objective Data Vital Signs Vital Signs: Vital Signs - 24 hr 08/11/23 16:00 08/11/23 16:00 08/11/23 18:00 Temperature 97.1 F L Pulse Rate 112 H 121 H 107 H Respiratory Rate 14 Blood Pressure 114/75 Pulse Oximetry 100 Oxygen Delivery Oxygen Flow Rate 08/11/23 20:10 08/11/23 20:00 08/11/23 21:21 Temperature 97.7 F Pulse Rate 112 H 80 Respiratory Rate 20 Blood Pressure 112/93 H Pulse Oximetry 95 95 Oxygen Delivery Room Air Oxygen Flow Rate 08/12/23 00:00 08/11/23 20:00 08/11/23 22:00 Temperature 98 F Pulse Rate 102 H 100 87 Respiratory Rate 16 Blood Pressure 116/84 Pulse Oximetry 98 Oxygen Delivery Oxygen Flow Rate 08/12/23 00:00 08/12/23 02:00 08/12/23 04:00 Temperature Pulse Rate 92 90 93 Respiratory Rate Blood Pressure Pulse Oximetry Oxygen Delivery Oxygen Flow Rate 08/12/23 04:55 08/12/23 06:00 08/12/23 06:00 Temperature 97.8 F Pulse Rate 97 88 84 Respiratory Rate 16 Blood Pressure 101/79 Pulse Oximetry 92 Oxygen Delivery Oxygen Flow Rate 08/12/23 08:31 08/12/23 08:00 08/12/23 08:00 Temperature 97.8 F Pulse Rate 112 H 104 H 112 H Respiratory Rate 16 16 Blood Pressure 111/83 Pulse Oximetry 95 95 Oxygen Delivery Room Air Oxygen Flow Rate 08/12/23 08:00 08/12/23 10:35 08/12/23 10:55 Temperature Pulse Rate 113 H 98 91 Respiratory Rate 25 H 15 Blood Pressure 105/81 105/81 Pulse Oximetry 97 93 Oxygen Delivery Room Air Room Air Oxygen Flow Rate 08/12/23 11:00 08/12/23 11:05 08/12/23 11:10 Temperature Pulse Rate 97 100 97 Respiratory Rate 1
[2023-08-12] MEDS: OMEGA 3 POLYUNSAT FATTY ACIDS 1 GM CAP PO (20:32)
[2023-08-12] MEDS: PRAVASTATIN SODIUM 20 MG TABLET PO (20:32)
--- NOTE | 2023-08-12 23:38 | PM.EVENT ---
Event Note Event Note Event Note: 08/12/2023 22:10 Nursing staff called me as the patient has had sudden onset of vision loss. The patient's last known well was at 21:30. Nursing staff be given the patient is antihypertensives. The patient requested to see the nurse that he had had the evening before to just CT. When the nurse went into converse with the patient around 22:00 the patient at that time suddenly could not see the nurse. He reports that the left outer portions of his visual field have a big black spot he cannot see the right side of my face. He cannot see the words that he is reading except for the last 2 letters On the right side of the page that I presented to him. He reports that even the left hemiface when he is looking and me is blurred. He can see the colors. When he looks down in his visual field he has a more crisp in vision but is still limited. On exam patient has no pronator drift difference in digital solutions architect strength, facial asymmetry or change in extraocular movements. The patient had been on anticoagulation with a heparin drip until this morning and was transition to [facility] after cardiac catheterization. The patient had a brief episode of headache in the right hindu region and the onset of symptoms but headache is since resolved. He does have a history of migraines but this is not atypical symptom for his migraines. I sent the patient for a stat CT of the brain which was unremarkable. Patient is not a candidate for tPA given recent and anticoagulation. I did discuss the patient's case with the stroke team at [facility]. They accepted the patient in transfer. My went back to discussed potential transfer with the patient the patient stated that he would not go to [place] as his PET son was recently murdered in [place]. I am made the mistake of assuming that this was due to the patient's son having at the hospital his trying his since the patient 2. The patient became I rate and agitated. He stated that his son did not in the hospital he simply in [place]. He does not want to go to [place] because he is afraid that if his family were to come visit him in [place] that they may be at risk of dying. I tried to have a discussion with the patient regarding neurologic outcome and that I was trying to transfer him for his best interest. I even offered to transfer the patient to a facility in [place] and he was worried about the cost of gas more so than his long-term neurologic outcome. He stated that he would rather than be transferred to [place] and he was more concerned about the convenience with his family than going to [place]. I did attempt to transfer the patient to [facility] in [place] but never heard back from the transfer line. The patient was sent down for a stat CTA of the head and neck per Neurology team recommendations from [facility]. Although they did state they would be surprised if they provide any useful information. This CTA of the head and neck did not demonstrate any significant findings. I did place consult for Neurology Service. I put the patient on frequent neurologic checks. The patient's neurologic symptoms did not improve but thankfully did not worsen as well throughout neurology logic checks. I did go re-evaluate the patient multiple times. The patient remained otherwise stable except for his AFib RVR which is being managed by Cardiology. Our neurologic service was not available for consult through the course of the night. I have placed a consult for Neurology in the morning. 90 minutes was spent in critical care activities including multiple discussions with the patient, and a discussion with patient, his and his son with the patient's permission. As well as discussion with multiple transfer lines and providers. Due to a high probability of clinically significant, life threatening deterioration, the patient required my highest level of preparedness to intervene emerge
[2023-08-13] VITALS (21 sets, daily range): BP systolic 105–129; BP diastolic 72–89; PULSE 62–146; RESP 20; TEMP 35.8–37.1; O2SAT 95–100
[2023-08-13 05:48] LABS: Hematocrit 47.6 % (42.0-52.0); Hemoglobin 15.5 g/dL (14.0-18.0); Mean Corpuscular HGB Conc 32.6 g/dl (32-36); Mean Corpuscular Hemoglobin 30.5 pg (26-34); Mean Corpuscular Volume 93.7 fl (80-100); Mean Platelet Volume 9.9 fl (7.4-10.4); Platelet Count Result 301 k/mm3 (150-375); Red Blood Count 5.08 M/mm3 (4.6-6.20); Red Cell Distribution Width 14.3 % (11.5-14.5)
[2023-08-13 05:59] LABS: Anion Gap 7 mmol/L (8-16); Blood Urea Nitrogen 14 mg/dL (9-20); Calcium 9.6 mg/dL (8.4-10.2); Carbon Dioxide 25 mmol/L (22-30); Chloride 104 mmol/L (98-107); Estimated CRCL calculation 105 ml/min; Estimated Glomerular Filt Rate > 60; Glucose 112 mg/dL (65-110); Magnesium 2.1 mg/dL (1.6-2.3); Potassium 4.6 mmol/L (3.4-5.0); Sodium 136 mmol/L (137-145)
[2023-08-13] MEDS: METOPROLOL TARTRATE 50 MG TAB 100 MG PO ×3 (06:10→21:31)
[2023-08-13 06:24] LABS: Digoxin 0.5 ng/mL (0.8-2.0)
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
[2023-08-13] MEDS: ASPIRIN 81 MG ENTERIC TABLET PO (09:53)
[2023-08-13] MEDS: CIPROFLOXACIN 500 MG TAB PO ×2 (09:53→21:30)
[2023-08-13] MEDS: CYCLOBENZAPRINE HCL 10 MG TABLET PO ×3 (09:54→18:12)
[2023-08-13] MEDS: DIGOXIN 250 MCG TABLET PO (09:54)
[2023-08-13] MEDS: EMPAGLIFLOZIN 10 MG TABLET PO (09:54)
[2023-08-13] MEDS: FUROSEMIDE 20 MG TABLET PO (09:55)
[2023-08-13] MEDS: LORATADINE 10 MG TABLET PO (09:56)
[2023-08-13] MEDS: MULTIVITAMINS /C LUTEIN (CENTRUM SILVER) TABLET *BKC 0.5 TAB PO ×2 (09:56→18:12)
[2023-08-13] MEDS: PSYLLIUM POWDER PACKET 1 PACKET PO (09:57)
[2023-08-13] MEDS: SACUBITRIL/VALSARTAN 12-13 MG TABLET 1 TAB PO ×2 (09:57→21:31)
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
--- NOTE | 2023-08-13 12:24 | PM.PNCARD ---
Progress Note: A&P Assessment and Plan (1) Cardiomyopathy: Qualifiers: Cardiomyopathy type: other Qualified Code(s): I42.8 - Other cardiomyopathies Code(s): I42.9 - Cardiomyopathy, unspecified Status: Acute Assessment and Plan: New diagnosis of cardiomyopathy, etiology unknown. Possibly tachycardia mediated. EF 15 - 20%. Well compensated at this time. Low-dose Entresto 12-13 mg b.i.d. Continue Jardiance 10 mg daily. Continue metoprolol for cardiovascular support and controlled AFib. Will continue with metoprolol tartrate for now for titration with plans to transition to metoprolol succinate prior to discharge. Monitor blood pressure and renal function closely. Daily BMP. Renal function stable thus far as are electrolytes. Life vest for reduction in risk for sudden cardiac secondary to VT/VF for EF 20% has been ordered and will be placed prior to discharge. Continue telemetry for now (2) Atrial fibrillation with RVR: Code(s): I48.91 - Unspecified atrial fibrillation Status: Acute Assessment and Plan: This is a new diagnosis. Heart rate better but still suboptimally controlled. Rate control, and more directly, rhythm control important to stabilize CHF and maintain cardiac output and allow for LV systolic recovery. Continue with rate control strategy for now as duration of atrial fibrillation is not known. Clinical concern for tachycardia induced cardiomyopathy Plan for Anticoagulation with DOAC ([id number] score of 2 for LV dyusfunction, HTN) in the form of apixaban 5mg p.o. b.i.d. when okay per neurology to start. Continue metoprolol to 100 mg q.8 hours. Will need to shift to Toprol XL at time of discharge. Continue digoxin 0.25 mg daily. However prefer to utilize digoxin on a short-term basis. Dig level 0.5, Keep level less than 1.0. He will require TRENT guided cardioversion to restore sinus rhythm if he remains in atrial fibrillation. However, unable to anticoagulate now because of acute cerebral infarct. When ok per neuro to start a/c, will need TRENT guided cardioversion. (3) Acute systolic heart failure: Code(s): I50.21 - Acute systolic (congestive) heart failure Status: Acute Assessment and Plan: Presents with progressive dyspnea, orthopnea, swelling, and PND now improved after IV Lasix. Continue Entresto 12/13 mg twice daily Continue Jardiance 10 mg daily. Continue Lasix 20 mg daily as I strongly suspect he will require at least some ongoing diuresis. Continue daily weights Accurate intake and output CHF counseling. (4) Elevated LFTs: Code(s): R79.89 - Other specified abnormal findings of blood chemistry Status: Acute Assessment and Plan: Likely secondary to passive congestion, low cardiac output in setting of AFib with RVR severe LV systolic dysfunction. Subjective Date/time seen: 08/13/23 12:25 Interval history: Cardiology follow up for AF, CHF, CMY Overnight had acute partial vision loss in the right eye and has been found to have an acute infarct by MRI. He states his vision was somewhat improved at one point this morning but currently is similar to onset of the vision loss last night. Does not have any other complaints. He denies shortness of breath. Review of Systems Review of Systems: All systems reviewed & are unremarkable except as noted in HPI and below Exam Const: General: comfortable, no acute distress, alert and awake Orientation/consciousness: patient oriented x3 HENMT: Head: normal to inspection Eyes: General: appearance normal, both eyes and all related structures Pupils: Equal, round and reactive pupils present Neck: Neck: normal visual inspection, supple and no JVD Carotids: normal carotid upstroke Resp: Effort & Inspection: normal respiratory effort Auscultation: clear to auscultation bilaterally and no rales Cardio: Rate: regular rate Rhythm: abnormal rhythm irregularl
--- NOTE | 2023-08-13 13:09 | PCPTNOTE ---
The patient treatment was not able to be completed on 08/13/2023 due to change in medical status. Will plan to continue treatment per plan of care.
--- NOTE | 2023-08-13 13:13 | PCOTNOTE ---
The patient treatment was not able to be completed OT to re-eval. Change in status. Will plan to continue treatment per plan of care.
--- NOTE | 2023-08-13 13:26 | PM.IMPN ---
Progress Note: A&P Assessment and Plan (1) CVA (cerebral vascular accident): Code(s): I63.9 - Cerebral infarction, unspecified Status: Acute Assessment and Plan: Patient developed acute onset of partial left eye vision loss. Head CT showed no acute intracranial abnormalities. CTA the head and neck showed no aneurysm or significant stenosis. Brain MRI was completed which shows acute infarct with foci of microhemorrhage in the right temporal occipital region in the expected distribution of the right posterior cerebral artery. Patient did receive Lovenox earlier today. He had been on heparin drip with plans to switch to Eliquis but has not received this yet. He has also been on aspirin. Aspirin and Eliquis are on hold. Neurology consult appreciated. Patient did not want to be transferred to [facility] but is okay to transfer to [facility]. Neurology services this week so that is it was felt patient would be better served with transfer to a facility that has neurology services. Patient has been accepted at [facility]. Awaiting bed. Etiology most likely from AFib but he did have a left heart catheterization so consider embolic from plaque rupture. Start PT/OT if unable to transfer. (2) Vision loss: Code(s): H54.7 - Unspecified visual loss Status: Acute Assessment and Plan: Visual loss is improved per patient. Continue to monitor. (3) Atrial fibrillation with RVR: Code(s): I48.91 - Unspecified atrial fibrillation Status: Acute Assessment and Plan: Patient presents with weakness and found to have atrial fibrillation with RVR. This is new onset. CTA was negative for PE. TSH was normal. Chad2-Vasc score is 2. Echocardiogram shows severe global hypokinesis with EF of 20% and diastolic dysfunction. Patient has been weaned off diltiazem. Currently on metoprolol and digoxin. Heart rate better controlled overall. Was on Heparin but now anticoagulation on hold. Appreciate Cardiology input (4) Acute systolic heart failure: Code(s): I50.21 - Acute systolic (congestive) heart failure Status: Acute Assessment and Plan: Echo showing EF 20%. CXR showing very small bilateral pleural effusions with atelectasis. BNP 7960. He was treated with IV Lasix once and now on low dose oral Lasix. Empagliflozin, Entresto and Metoprolol started. Euvolemic. Continue current treatment plan. (5) Cardiomyopathy: Qualifiers: Cardiomyopathy type: other Qualified Code(s): I42.8 - Other cardiomyopathies Code(s): I42.9 - Cardiomyopathy, unspecified Status: Acute Assessment and Plan: Patient underwent left heart catheterization which showed a right coronary dominant circulation with no angiographic evidence of CAD. Patient has nonischemic cardiomyopathy possibly viral or more likely tachyarrhythmia induced from his uncontrolled atrial fibrillation. Appropriate treatment has been started as mentioned above. Will need LifeVest which has been arranged. Appreciate cardiology input. (6) Transaminitis: Code(s): R74.01 - Elevation of levels of liver transaminase levels Status: Acute Assessment and Plan: LFTs elevated on admission. AST peaked at 297, ALT at 216 and bilirubin at 2.1. Alk-phos remains normal. LFTs are trending downward. Alcohol level was negative on admission. Patient is not a heavy alcohol user. Abdominal ultrasound showed normal liver echotexture. No liver masses or biliary dilation. Pancreas appeared normal. Normal flow through the portal vein. He had gallstones. General surgery was consulted and appreciate their input. Continue to follow liver tests. Will check hepatitis panel. (7) Cholelithiasis: Qualifiers: Biliary obstruction: without biliary obstruction Cholecystitis presence: without cholecystitis Cholelithiasis location: gallbladder Qualified Code(s): K80.20
--- NOTE | 2023-08-13 13:27 | PC.NURSE ---
0949-pt stated he could see about 3/4 of my face instead of just half of my face
--- NOTE | 2023-08-13 13:27 | PC.NURSE ---
[id number]-called Dr. Tello to update him on MRI results
[2023-08-13] MEDS: ENOXAPARIN 40 MG/0.4 ML SYRINGE SUB-Q (13:48)
--- NOTE | 2023-08-13 14:48 | PM.PNGS ---
Progress Note: A&P Assessment and Plan (1) Cholelithiasis: Qualifiers: Cholelithiasis location: gallbladder Cholecystitis presence: without cholecystitis Biliary obstruction: without biliary obstruction Qualified Code(s): K80.20 - Calculus of gallbladder without cholecystitis without obstruction Code(s): K80.20 - Calculus of gallbladder without cholecystitis without obstruction Status: Chronic Assessment and Plan: Patient still tolerating a diet with no abdominal pain or tenderness. No signs of cholecystitis at this time. Discussed with patient and his family that with the acute CVA, he would not be a candidate for an elective laparoscopic cholecystectomy for up to possibly 6 months. We would recommend that he continue a low fat diet after discharge. He can follow-up as an outpatient eventually once his other acute medical issues have been treated and resolved. We will sign off at this time. Please call with any surgical questions or concerns. (2) CVA (cerebral vascular accident): Code(s): I63.9 - Cerebral infarction, unspecified Status: Acute Assessment and Plan: New onset partial left vision loss last night. CT head showed no acute intracranial abnormalities. CTA head/neck no aneurysm or significant stenosis. Brain MRI this morning showed acute infarct with foci of microhemorrhage in right temporal occipital region. Neurology consulted. Anticoagulation currently on hold. (3) Atrial fibrillation with RVR: Code(s): I48.91 - Unspecified atrial fibrillation Status: Acute (4) Cardiomyopathy: Qualifiers: Cardiomyopathy type: other Qualified Code(s): I42.8 - Other cardiomyopathies Code(s): I42.9 - Cardiomyopathy, unspecified Status: Acute Assessment and Plan: Ejection fraction 15%. Continue management per Cardiology. (5) Acute systolic heart failure: Code(s): I50.21 - Acute systolic (congestive) heart failure Status: Acute Plan I have discussed the patient's case and plan of care with Dr. Jarvis. Subjective Subjective Date/Time Seen: 08/13/23 14:48 Interval history: Patient had heparin infusion stopped for cardiac cath yesterday. He was scheduled to start Eliquis tomorrow morning. Last evening, he developed acute onset of partial left eye vision loss last night. CT head showed no acute intracranial abnormalities. CTA head/neck no aneurysm or significant stenosis. Brain MRI this morning showed acute infarct with foci of microhemorrhage in right temporal occipital region. Neurology consulted. He is seen with family at the bedside. Still denies any abdominal pain and tolerating a low fat diet. Exam Const: General: no acute distress and alert Orientation/consciousness: patient oriented x3 GI: Inspection: non-distended GI Palp: Yes Soft to palpation, No Tenderness to palpation present (GI), No Guarding due to palpation present (GI) and No Rebound tenderness present Auscultation: normal bowel sounds Objective Data Vital Signs Vital Signs: Vital Signs - 24 hr 08/12/23 14:55 08/12/23 15:45 08/12/23 16:48 Temperature 97.3 F L 98.1 F Pulse Rate 102 H 91 87 Respiratory Rate 17 18 Blood Pressure 102/76 112/68 Pulse Oximetry 97 100 Oxygen Delivery 08/12/23 16:00 08/12/23 16:00 08/12/23 17:49 Temperature 98.0 F Pulse Rate 87 115 H 80 Respiratory Rate 18 19 Blood Pressure 96/68 L Pulse Oximetry 100 100 Oxygen Delivery Room Air 08/12/23 18:00 08/12/23 20:00 08/12/23 21:12 Temperature 97.7 F Pulse Rate 103 H 58 L 135 H Respiratory Rate 20 Blood Pressure 117/74 Pulse Oximetry 97 Oxygen Delivery 08/12/23 20:00 08/12/23 22:58 08/12/23 22:00 Temperature Pulse Rate 100 131 H 120 H Respiratory Rate 20 Blood Pressure 105/88 Pulse Oximetry 97 Oxygen Delivery 08/13/23 00:00 08/13/23 02:00 08/13/23 03:55 Temperature 97.8 F Pulse Rate 131 H 146 H 111 H Respirator
--- NOTE | 2023-08-13 15:28 | PC.NURSE ---
[address] Tello about continuing Lovenox, will hold until after CT in AM. Also discussed pt staying in IMU. He feels pt is stable enough to stay in IMU.
--- NOTE | 2023-08-13 21:20 | PC.NURSE ---
1819 pt states he can see my whole face now but parts are not as clear as others.
[2023-08-13] MEDS: PRAVASTATIN SODIUM 20 MG TABLET PO (21:30)
[2023-08-13] MEDS: OMEGA 3 POLYUNSAT FATTY ACIDS 1 GM CAP PO (21:30)
[2023-08-14] VITALS (11 sets, daily range): BP systolic 97–110; BP diastolic 75–86; PULSE 84–125; RESP 20; TEMP 36.2–36.6; O2SAT 93–98
[2023-08-14 05:12] LABS: Basophils Absolute Auto 0.1 K/mm3 (0.0-0.1); Basophils Percent Auto 0.5 % (0.2-1.2); Eosinophils Absolute Auto 0.2 K/mm3 (0-0.3); Eosinophils Percent Auto 1.6 % (0-4.4); Hematocrit 48.1 % (42.0-52.0); Hemoglobin 15.9 g/dL (14.0-18.0); Immature Granulocyte Absolute 0.03 K/mm3 (0.00-0.031); Immature Granulocyte Percent A 0.3 % (0-0.5); Lymphocytes Absolute Auto 1.11 K/mm3 (0.9-3.2); Lymphocytes Percent Auto 11.3 % (18.3-44.2); Mean Corpuscular HGB Conc 33.1 g/dl (32-36); Mean Corpuscular Hemoglobin 30.6 pg (26-34); Mean Corpuscular Volume 92.5 fl (80-100); Mean Platelet Volume 9.7 fl (7.4-10.4); Monocytes Absolute Auto 0.9 K/mm3 (0.1-0.6); Monocytes Percent Auto 9.5 % (2.6-8.5); Neutrophils Absolute Auto 7.5 K/mm3 (1.3-6.7); Neutrophils Percent Auto 76.8 % (45.5-73.1); Platelet Count Result 302 k/mm3 (150-375); Red Cell Distribution Width 14.3 % (11.5-14.5); White Blood Count 9.8 K/mm3 (4.5-10.0)
[2023-08-14 05:22] LABS: Alanine Aminotransferase 76 U/L (6-50); Albumin Level 4.3 g/dL (3.5-5.1); Alkaline Phosphatase 76 U/L (38-126); Anion Gap 9 mmol/L (8-16); Aspartate Amino Transferase 50 U/L (17-59); Bilirubin,Total 1.3 mg/dL (0.2-1.3); Blood Urea Nitrogen 13 mg/dL (9-20); Calcium 9.5 mg/dL (8.4-10.2); Carbon Dioxide 26 mmol/L (22-30); Chloride 103 mmol/L (98-107); Estimated CRCL calculation 94 ml/min; Estimated Glomerular Filt Rate > 60; Glucose 103 mg/dL (65-110); Magnesium 2.1 mg/dL (1.6-2.3); Phosphorus 4.3 mg/dL (2.5-4.5); Potassium 4.3 mmol/L (3.4-5.0); Sodium 138 mmol/L (137-145)
[2023-08-14 05:54] LABS: Hepatitis B Surface Antigen Negative (Negative)
[2023-08-14 06:12] LABS: Hepatitis C Virus Antibody Negative (Negative)
[2023-08-14 06:15] LABS: HAV RESULT Negative (Negative); Hepatitis B Core IgM Result Negative (Negative)
[2023-08-14] MEDS: METOPROLOL TARTRATE 50 MG TAB 100 MG PO (06:21)
--- NOTE | 2023-08-14 08:23 | PM.IMPN ---
Progress Note: A&P Assessment and Plan (1) CVA (cerebral vascular accident): Code(s): I63.9 - Cerebral infarction, unspecified Status: Acute (2) Vision loss: Code(s): H54.7 - Unspecified visual loss Status: Acute (3) Atrial fibrillation with RVR: Code(s): I48.91 - Unspecified atrial fibrillation Status: Acute (4) Acute systolic heart failure: Code(s): I50.21 - Acute systolic (congestive) heart failure Status: Acute (5) Cardiomyopathy: Qualifiers: Cardiomyopathy type: other Qualified Code(s): I42.8 - Other cardiomyopathies Code(s): I42.9 - Cardiomyopathy, unspecified Status: Acute (6) Transaminitis: Code(s): R74.01 - Elevation of levels of liver transaminase levels Status: Acute (7) Cholelithiasis: Qualifiers: Cholelithiasis location: gallbladder Cholecystitis presence: without cholecystitis Biliary obstruction: without biliary obstruction Qualified Code(s): K80.20 - Calculus of gallbladder without cholecystitis without obstruction Code(s): K80.20 - Calculus of gallbladder without cholecystitis without obstruction Status: Chronic (8) CAD (coronary artery disease): Code(s): I25.10 - Atherosclerotic heart disease of [place] coronary artery without angina pectoris Status: Acute Plan question regarding the stroke and the need for the MRI which can be done because of the foreign body possibility and also patient is reluctant to go to tertiary care, considering negative CTA and negative CT of the brain MRI will not be necessary he can be discharged with follow-up by the family physician he is taking aspirin 81 mg the websphere commerce developer satisfied no need to add the Plavix as well. Subjective Date/time seen: 08/14/23 08:23 Interval history: 58yo male with CAD, HTN and HLD presents with weakness and found to have new onset AFib and nonischemic CMP. Assuming care. Chart reviewed. Patient had sudden onset left eye partial blindness. He had LHC yesterday. Patient states the vision lss is left upper outer field. No other complains. No eakness in arms or legs. No CP or SOB. Complains of left shoulder pain which is chronic and has right sided headache which is new. Review of Systems Review of Systems: 12 point review of systems was assessed and was negative except as noted in the HPI Exam Narrative: AF 96.9 129/89 104 20 95% ra Gen - NARD sitting up in bed Chest - CTA bilaterally, nml RR CV - irregular irregular. Tele showing AFib with mostly controlled rate. Abd - Soft, NT/ND, Positive BS Ext - No pedal edema Neuro - Alert and oriented. No focal weakness except mild right hip flexor 5-/5. Heel to subramanian intact. Vision loss left upper outer quadrant o/w CN intact Psych - Nml mood and affect Skin - Warm and dry Objective Data Vital Signs Vital Signs: Vital Signs - 24 hr 08/13/23 09:12 08/13/23 09:54 08/13/23 12:09 Temperature 96.5 F L 96.9 F L Pulse Rate 62 106 H 93 Respiratory Rate 20 20 Blood Pressure 105/72 129/89 Pulse Oximetry 98 95 Oxygen Delivery 08/13/23 13:49 08/13/23 16:09 08/13/23 20:00 Temperature 98.7 F 97.7 F Pulse Rate 104 H 103 H 117 H Respiratory Rate 20 20 Blood Pressure 106/82 118/88 Pulse Oximetry 95 100 Oxygen Delivery 08/13/23 10:00 08/13/23 12:00 08/13/23 14:00 Temperature Pulse Rate 105 H 127 H 98 Respiratory Rate Blood Pressure Pulse Oximetry Oxygen Delivery 08/13/23 16:00 08/13/23 18:00 08/13/23 21:31 Temperature Pulse Rate 90 118 H 124 H Respiratory Rate Blood Pressure Pulse Oximetry Oxygen Delivery 08/13/23 20:00 08/13/23 20:00 08/13/23 21:55 Temperature Pulse Rate 124 H 101 H Respiratory Rate Blood Pressure Pulse Oximetry Oxygen Delivery Room Air 08/13/23 23:38 08/13/23 23:38 08/14/23 00:00 Temperature 97.9 F Pulse Rate 100 107 H Respiratory Rate
--- NOTE | 2023-08-14 09:34 | PCNFU ---
Nutrition Follow-Up Complete: Unintentional weight loss related to reduced appetite and intake as evidenced by pt report Goal:Diet order- Heart healthy diet Intake 75% or greater for meals and supplement _ Goal being met Pt current nutrition is Heart healthy diet. Nutrition recommendation: Continue with current diet orders. Agree with orders Last recorded weight is 99 kg. Bowel Motility: +2 BM 08/12/23 Labs Reviewed: All pertinent labs WNL Meds Noted: Eliquis, Entresto, Lasix Skin: WNL Additional Notes: Intakes are good on heart healthy diet. No changes to current nutrition care plan. Pt was educated on heart healthy/low sodium diet 08/09/23. Agree with orders. Monitor for diet order, intake, wt, labs. Follow up in 5 days.
[2023-08-14] MEDS: PSYLLIUM POWDER PACKET 1 PACKET PO (10:12)
[2023-08-14] MEDS: SACUBITRIL/VALSARTAN 12-13 MG TABLET 1 TAB PO (10:12)
[2023-08-14] MEDS: CIPROFLOXACIN 500 MG TAB PO (10:12)
[2023-08-14] MEDS: FUROSEMIDE 20 MG TABLET PO (10:13)
[2023-08-14] MEDS: MULTIVITAMINS /C LUTEIN (CENTRUM SILVER) TABLET *BKC 0.5 TAB PO (10:13)
[2023-08-14] MEDS: CYCLOBENZAPRINE HCL 10 MG TABLET PO (10:13)
[2023-08-14] MEDS: DIGOXIN 250 MCG TABLET PO (10:14)
[2023-08-14] MEDS: LORATADINE 10 MG TABLET PO (10:15)
[2023-08-14] MEDS: EMPAGLIFLOZIN 10 MG TABLET PO (10:15)
--- NOTE | 2023-08-14 12:07 | PM.TDS ---
Transfer Discharge Sum: Prov Provider Date of admission: 08/10/23 13:44 Primary care physician: Damien Felix, MD Admitting clinician: Renetta Boston MD Consults: 08/08/23 Consult to Physician Routine Comment: Consulting Provider: Johann Jarvis Reason for consultation: cholelithiasis with sonu hepatic inflammation Has provider been notified: Yes 08/09/23 Cardiopulmonary Rehabilitation Consult Routine Comment: Consult Plan: Evaluate for Eligibility Consult to Dietitian Routine Reason for Consult:: New diagnosis CHF. CHF/low sodium diet education Consult to Physician Routine Comment: Spoke with Suzanne Yessi and notified her of consult Consulting Provider: Gerardo Balderas call center specialist/MD group to consult: cardiology Reason for consultation: severe reduced EF, new a fib Has provider been notified: Yes 08/09/23 15:00 Care Coordination Consult Routine Comment: Reason for Consult:: [employer] 08/13/23 Consult to Physician Routine Comment: Spoke with and notified him of consult Consulting Provider: Ant Rosado call center specialist/MD group to consult: neurology Reason for consultation: Acute CVA Has provider been notified: Yes DS: Admitting Diagnosis Discharge Date 08/14/23 Admitting Diagnosis weakness DS: Discharge Diagnosis Discharge Diagnosis (1) CVA (cerebral vascular accident): Code(s): I63.9 - Cerebral infarction, unspecified Status: Acute (2) Vision loss: Code(s): H54.7 - Unspecified visual loss Status: Acute (3) Atrial fibrillation with RVR: Code(s): I48.91 - Unspecified atrial fibrillation Status: Acute (4) Acute systolic heart failure: Code(s): I50.21 - Acute systolic (congestive) heart failure Status: Acute (5) Cardiomyopathy: Qualifiers: Cardiomyopathy type: other Qualified Code(s): I42.8 - Other cardiomyopathies Code(s): I42.9 - Cardiomyopathy, unspecified Status: Acute (6) Transaminitis: Code(s): R74.01 - Elevation of levels of liver transaminase levels Status: Acute (7) Cholelithiasis: Qualifiers: Biliary obstruction: without biliary obstruction Cholecystitis presence: without cholecystitis Cholelithiasis location: gallbladder Qualified Code(s): K80.20 - Calculus of gallbladder without cholecystitis without obstruction Code(s): K80.20 - Calculus of gallbladder without cholecystitis without obstruction Status: Chronic (8) CAD (coronary artery disease): Code(s): I25.10 - Atherosclerotic heart disease of [place] coronary artery without angina pectoris Status: Acute Plan question regarding the stroke and the need for the MRI which can be done because of the foreign body possibility and also patient is reluctant to go to tertiary care, considering negative CTA and negative CT of the brain MRI will not be necessary he can be discharged with follow-up by the family physician he is taking aspirin 81 mg the central service supply distributor satisfied no need to add the Plavix as well. Transfer Discharge Sum: Med Medications Active and Home Medications: Home Medications aspirin 81 mg tablet,delayed release 81 tablet PO DAILY 03/14/22 [History Confirmed 08/08/23] carvedilol 3.125 mg tablet 3.125 mg PO HS 03/14/22 [History Confirmed 08/08/23] cyclobenzaprine 10 mg tablet 10 tablet PO TID 03/14/22 [History Confirmed 08/08/23] fluticasone propionate 50 mcg/actuation nasal spray,suspension 1 ea intranasal HS 03/14/22 [History Confirmed 08/08/23] lisinopril 5 mg tablet 5 mg PO HS 03/14/22 [History Confirmed 08/08/23] meloxicam 7.5 mg tablet 7.5 mg PO HS 03/14/22 [History Confirmed 08/08/23] pravastatin 20 mg tablet 20 mg PO HS 03/14/22 [History Confirmed 08/08/23] cetirizine 10 mg capsule (Zyrtec) 10 mg PO DAILY 03/12/23 [History Confirmed 08/08/23] glucosamine-chondroitin 250 mg-200 mg tablet (Osteo Bi-Flex) 1 tablet PO HS 03/12/23 [History Confirmed 08/08/23] nitro
--- NOTE | 2023-08-14 12:15 | WPDNEUROPN ---
Subjective Date/time seen: 08/14/23 12:15 Interval history: Patient remains neurologically stable, CT scan of the brain was done to document no increase in the size of the hemorrhage and it is read as acute right posterior parietal occipital over infarction with mild mass effect but no definite associated hemorrhage. Patient is receiving aspirin 81 mg daily apixaban 5 mg q.12 hours because of the documented atrial fibrillation. Objective Data Vital Signs Vital Signs: Vital Signs - 24 hr 08/13/23 13:49 08/13/23 16:09 08/13/23 20:00 Temperature 37.1 C 36.5 C Pulse Rate 104 H 103 H 117 H Respiratory Rate 20 20 Blood Pressure 106/82 118/88 Pulse Oximetry 95 100 Oxygen Delivery 08/13/23 14:00 08/13/23 16:00 08/13/23 18:00 Temperature Pulse Rate 98 90 118 H Respiratory Rate Blood Pressure Pulse Oximetry Oxygen Delivery 08/13/23 21:31 08/13/23 20:00 08/13/23 20:00 Temperature Pulse Rate 124 H 124 H Respiratory Rate Blood Pressure Pulse Oximetry Oxygen Delivery Room Air 08/13/23 21:55 08/13/23 23:38 08/13/23 23:38 Temperature Pulse Rate 101 H 100 Respiratory Rate Blood Pressure Pulse Oximetry Oxygen Delivery Room Air 08/14/23 00:00 08/14/23 02:00 08/14/23 04:00 Temperature 36.6 C Pulse Rate 107 H 93 94 Respiratory Rate 20 Blood Pressure 107/78 Pulse Oximetry 95 Oxygen Delivery 08/14/23 04:00 08/14/23 04:00 08/14/23 06:00 Temperature 36.6 C Pulse Rate 112 H 84 Respiratory Rate 20 Blood Pressure 107/86 Pulse Oximetry 93 Oxygen Delivery Room Air 08/14/23 06:21 08/14/23 08:14 08/14/23 10:14 Temperature 36.2 C L Pulse Rate 100 100 103 H Respiratory Rate 20 Blood Pressure 110/76 Pulse Oximetry 97 Oxygen Delivery 08/14/23 11:43 Temperature 36.4 C Pulse Rate 103 H Respiratory Rate 20 Blood Pressure 97/75 L Pulse Oximetry 98 Oxygen Delivery Intake/Output Intake/Output: Intake & Output 08/11/23 08/12/23 08/13/23 08/14/23 23:59 23:59 23:59 23:59 Intake Total 3070 1130 1230 1340 Output Total 825 Balance 3070 305 1230 1340 Meds/Results Medications: Active Medications Generic Name Dose Route Start Last Admin Trade Name Freq PRN Reason Stop Dose Admin Acetaminophen 650 mg 08/08/23 17:51 Acetaminophen 325 Mg Tablet PO Q6H PRN Mild Pain (1-3) or Fever Hydrocodone Bitart/Acetaminophen 1 tab 08/08/23 17:51 08/08/23 18:14 Hydrocodone/Acetaminophen (*Crx) 10-325 Mg Tablet PO 1 tab Q6H PRN Administration Pain Rated 4-6 Apixaban 5 mg 08/14/23 09:00 08/14/23 10:06 Apixaban 5 Mg Tablet PO Not Given Q12HR CIRO Aspirin 81 mg 08/09/23 09:00 08/13/23 09:53 Aspirin 81 Mg Enteric Tablet PO 81 mg QAM CIRO Administration Ciprofloxacin 500 mg 08/11/23 12:00 08/14/23 10:12 Ciprofloxacin 500 Mg Tab PO 500 mg Q12HR CIRO Administration Cyclobenzaprine HCl 10 mg 08/09/23 09:00 08/14/23 10:13 Cyclobenzaprine Hcl 10 Mg Tablet PO 10 mg TID CIRO Administration Digoxin 250 mcg 08/09/23 23:05 08/14/23 10:14 Digoxin 250 Mcg Tablet PO 250 mcg QAM CIRO Administration Docusate Sodium 200 mg 08/08/23 20:03 Docusate Sodium 100 Mg Capsule PO Q12H PRN Constipation Empagliflozin 10 mg 08/10/23 09:00 08/14/23 10:15 Empagliflozin 10 Mg Tablet PO 10 mg DAILY CIRO Administration Fish Oil 1 gm 08/08/23 21:00 08/13/23 21:30 [place] 3 Polyunsat Fatty Acids 1 Gm Cap PO 09/07/23 20:59 1 gm HS CIRO Administration Furosemide 20 mg 08/13/23 09:00 08/14/23 10:13 Furosemide 20 Mg Tablet PO 20 mg DAILY CIRO Administration Loratadine 10 mg 08/09/23 09:00 08/14/23 10:15 Loratadine 10 Mg Tablet PO 09/08/23 08:59 10 mg DAILY CIRO Administration Metoprolol Tartrate 5 mg 08/09/23 23:04 Metoprolol Tartrate Inj 5 Mg/5 Ml Vial IV PUSH Q4H PRN Tachycardia Metoprolol Tar
--- NOTE | 2023-08-14 15:36 | PC.NURSE ---
1232 pt left with [facility], pt alert and oriented x4, vitals stable, belongings sent with family.
== END 2023-08-14 12:32 | disposition short-term general hospital (02) | DRG 192 ==
LOC: ANHED 23:10 → ANHIMU 23:58
PROVIDERS: Emergency Medicine; General Practice; Internal Medicine; Internal Medicine Cardiovascular Disease; Nurse Practitioner; Nurse Practitioner Family; Specialist; Admitting Provider Internal Medicine; Emergency Provider Student in an Organized Health Care Education/Training Program; PCP Family Medicine; Visit Provider Student in an Organized Health Care Education/Training Program
PROC: 4A023N7 Measurement of Cardiac Sampling and Pressure, Left Heart, Percutaneous Approach (ICD-10-PCS; CPT 93452; principal; 2023-08-12 10:00)
DX: I48.91 Unspecified atrial fibrillation (principal); I63.531 Cerebral infarction due to unspecified occlusion or stenosis of right posterior cerebral artery; I50.21 Acute systolic (congestive) heart failure; H54.7 Unspecified visual loss; I11.0 Hypertensive heart disease with heart failure; I43 Cardiomyopathy in diseases classified elsewhere; E78.5 Hyperlipidemia, unspecified; I25.10 Atherosclerotic heart disease of native coronary artery without angina pectoris; I25.2 Old myocardial infarction; K80.10 Calculus of gallbladder with chronic cholecystitis without obstruction; M19.90 Unspecified osteoarthritis, unspecified site; M25.512 Pain in left shoulder; Z79.82 Long term (current) use of aspirin; Z87.891 Personal history of nicotine dependence
CPT/HCPCS: 36415; 70450; 70496; 70498; 70551; 71046; 71275; 76705; 80048; 80053; 80074; 80162; 80307; 81003; 82948; 83690; 83735; 83880; 84100; 84145; 84443; 84484; 85025; 85027; 85380; 85610; 85730; 87070; 87205; 87426; 93005; 93306; 93458; 96361; 96365; 96366; 96367; 96374; 96375; 96376; 97161; 97165; 97168; 99285; A9270; C1887; C1894; C9803; G0378; G0379; J0696; J1644; J1650; J1885; J1940; J2250; J2405; J2543; J3010; J3475; J7030; J7040; Q9967

== ENCOUNTER 2023-10-09 01:17 | Day surgery (SDC) | payer OTHER, SELFPAY ==
[2023-10-08 16:37] VITALS: BMI 27.3
--- NOTE | 2023-10-09 10:00 | ECG_ITS ---
Measurements Intervals [place] Rate: 95 P: [place]: 0 QRS: 16 QRSD: 101 T: 131 QT: 344 QTc: 433 Interpretive Statements ATRIAL FIBRILLATION ST DEVIATION AND MODERATE T-WAVE ABNORMALITY, CONSIDER LATERAL ISCHEMIA [-0.1+ mV T WAVE IN I/aVL/V5/V6] COMPARED TO ECG 08/08/2023 10:23:42 NO SIGNIFICANT CHANGES Electronically Signed On 10-09-2023 20:54:04 [facility] by Jami Golden M.D.
[2023-10-09 10:19] VITALS: BP 112/82; PULSE 102; RESP 18; TEMP 36.1; O2SAT 97; BMI 26.2
[2023-10-09 11:09] LABS: Anion Gap 10 mmol/L (8-16); Blood Urea Nitrogen 15 mg/dL (9-20); Calcium 8.9 mg/dL (8.4-10.2); Carbon Dioxide 22 mmol/L (22-30); Chloride 107 mmol/L (98-107); Estimated CRCL calculation 108 ml/min; Estimated Glomerular Filt Rate > 60; Glucose 99 mg/dL (65-110); Magnesium 2.1 mg/dL (1.6-2.3); Potassium 3.9 mmol/L (3.4-5.0); Sodium 139 mmol/L (137-145)
[2023-10-09 11:55] VITALS: BP 116/77; PULSE 88; RESP 19; O2SAT 97
[2023-10-09 12:10] VITALS: BP 100/87; PULSE 85; RESP 13; O2SAT 98
== END 2023-10-09 14:30 | disposition home or self-care (01) ==
PROVIDERS: PCP Family Medicine; Visit Provider Internal Medicine
PROC: (CPT 93312; principal; 2023-10-09 11:30)
PROC: 5A2204Z Restoration of Cardiac Rhythm, Single (ICD-10-PCS; 2023-10-09 11:30)
DX: I48.91 Unspecified atrial fibrillation (principal); R93.1 Abnormal findings on diagnostic imaging of heart and coronary circulation
CPT/HCPCS: 36415; 80048; 83735; J2704; J7030

== ENCOUNTER 2023-10-10 00:38 | Day surgery (SDC) | payer OTHER, SELFPAY ==
[2023-10-10] VITALS (18 sets, daily range): BP systolic 90–113; BP diastolic 62–94; PULSE 70–118; RESP 9–22; TEMP 36.3; O2SAT 94–98
--- NOTE | 2023-10-10 10:00 | ECG_ITS ---
Measurements Intervals [place] Rate: 92 P: [place]: 0 QRS: 18 QRSD: 96 T: 138 QT: 335 QTc: 415 Interpretive Statements ATRIAL FIBRILLATION LOW QRS VOLTAGE IN EXTREMITY LEADS [QRS DEFLECTION < 0.5 mV IN LIMB LEADS] ST DEVIATION AND MODERATE T-WAVE ABNORMALITY, CONSIDER LATERAL ISCHEMIA [-0.1+ mV T WAVE IN I/aVL/V5/V6] COMPARED TO ECG 10/09/2023 10:22:28 NO SIGNIFICANT CHANGES Electronically Signed On 10-10-2023 15:05:50 [facility] by Jami Golden M.D.
--- NOTE | 2023-10-10 10:31 | WPDHPUPDATE1 ---
History and Physical Update Update Date/Time: 10/10/23 10:31 History and Physical has been reviewed, including an updated exam of the patient. There are NO changes in the patient's condition. Risks, benefits, and alternatives have been discussed and questions answered. Patient agrees to proceed with procedure.
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
[2023-10-10] MEDS: PERFLUTREN LIPID MICROSPHERES 1.5 ML VIAL DILUTED TO 10 ML TOTAL VOLUME IV PUSH (11:20)
--- NOTE | 2023-10-10 11:44 | P.PCNTEECA_ITS ---
TRENT with Cardioversion Date of procedure: 10/10/23 Procedure Type: Date of Procedure: 10/10/2023 Brief History Of Present Illness: Patient is a pleasant 58 year old male who is referred for TRENT-guided DCCV for atrial fibrillation. Procedure In Detail: After verbal and written informed consent was obtained, the patient risks, benefits, and alternatives explained in detail. The patient agreed to proceed with the plan of care as outlined above.?The patient was evaluated at bedside in [facility].?The posterior oropharynx, neck, and jaw angle all within normal limits on examination. Lungs were clear to auscultation. See pre-sedation note for further details. The patient was then placed in the appropriate 30 to 45 degree angle supine position at a slight left lateral decubitus position.?Patient was monitored throughout the study with telemetry, oxygen saturation, end-tidal CO2 monitoring, blood pressure, heart rate, and respirations.? The posterior hypopharynx was then locally anesthetized using repeated administration of Hurricaine spray as well as gargled viscous lidocaine.? After local anesthetic of the posterior hypopharynx was achieved and the oral bite block placed, moderate sedation was administered.? After confirmation of adequate moderate sedation, the transesophageal echocardiogram probe was advanced through the oral bite block into the posterior hypopharynx and into the esophagus easily and without complication.? Multiple, multiplanar echocardiographic images were obtained in multiple standard re- projections. During the procedure, there was probe malfunction and we were not able to make the probe properly function again. The probe was removed and a new probe was inserted. Definity was administered for better visualization of the left atrial appendage to definitely rule out thrombus. At the conclusion of the study, the transesophageal echocardiogram probe was removed easily and without complication.? The patient tolerated the procedure well without difficulty.? Moderate Sedation/Anesthesia administration: Patient reports no prior problems with sedation/anesthesia. Please see pre- sedation noted for physical examination documentation. As noted above, after adequate local anesthesia of the posterior hypopharynx was achieved, a total Propfol 100mg, Versed 3mg and Fentanyl 100mcg were administered in multiple divided doses for moderate sedation.? Sedation start time was 11:04 and end time was 11:39 for a total intra-service/procedure face-face time of? 35 minutes.? Propofol was administered by , and Versed and Fentanyl was administered by Idania Salinas. There were no other issues or complications and patient tolerated the procedure well. See post-anesthesia documentation. FINDINGS: LEFT ATRIAL APPENDAGE: Anatomically normal structure with prominent pectinate muscles. Smoke was noted in the left atrial appendage. Definity was administered for better visualization of the left atrial appendage and to definitely rule out thrombus. No thrombus identified. CARDIOVERSION: Defibrillator pads placed in an AP position. Synchronized cardioversion was performed at 200 joules, however, patient did not convert and remained in atrial fibrillation. Second shock administered at 250 joules, which afterwards there was a few sinus beats, however, then went back to atrial fibrillation. Third shock administered at 300 joules, but patient remained in atrial fibrillation. At this time, we concluded the procedure. CONCLUSION: Unsuccessful cardioversion. COMPLICATIONS: None
== END 2023-10-10 13:45 | disposition home or self-care (01) ==
PROVIDERS: PCP Family Medicine; Visit Provider Internal Medicine
PROC: (CPT 93312; principal; 2023-10-10 11:30)
PROC: 5A2204Z Restoration of Cardiac Rhythm, Single (ICD-10-PCS; 2023-10-10 11:30)
DX: I48.91 Unspecified atrial fibrillation (principal); R06.02 Shortness of breath; I50.9 Heart failure, unspecified; I11.0 Hypertensive heart disease with heart failure; E78.5 Hyperlipidemia, unspecified; Z87.891 Personal history of nicotine dependence
CPT/HCPCS: 92960; 93312; 93320; 93325; C8925; J2250; J2704; J3010; Q9957

== ENCOUNTER 2023-12-22 15:23 | Observation (INO) | payer OTHER, SELFPAY ==
[2023-12-22] VITALS (22 sets, daily range): BP systolic 88–142; BP diastolic 47–102; PULSE 78–157; RESP 10–25; TEMP 36.1–36.4; O2SAT 97–100; BMI 26.6
--- NOTE | ~2023-12-22 | XR_ITS ---
EXAMINATION: XR chest 2V DATE: 12/22/2023 16:17 INDICATION: Chest pain. TECHNIQUE: Frontal and lateral views of the chest were obtained. COMPARISON: Chest 2 views 08/07/23 FINDINGS: There is no pneumonia, pleural effusion, or pneumothorax. The heart size is normal. There i s an old healed fracture of right clavicle. There is mild chronic anterior wedging of multiple verteb ral bodies. IMPRESSION: 1. No acute cardiopulmonary disease. Reviewed, dictated and finalized at location E.
--- NOTE | 2023-12-22 15:26 | ECG_ITS ---
Measurements Intervals [place] Rate: 131 P: [place]: 0 QRS: 33 QRSD: 92 T: 95 QT: 304 QTc: 450 Interpretive Statements ATRIAL FIBRILLATION WITH RAPID VENTRICULAR RESPONSE NONSPECIFIC ST & T-WAVE ABNORMALITY- LAT/HIGH LAT LEADS BASELINE ARTIFACT- I, AVR, AVL ABNORMAL ECG COMPARED TO ECG 10/10/2023 10:21:36 HEART RATE HAS INCREASED Electronically Signed On 12-22-2023 17:29:28 CDT by Humberto Voss D.O.
[2023-12-22 15:58] LABS: Basophils Absolute Auto 0.1 K/mm3 (0.0-0.1); Basophils Percent Auto 1.1 % (0.2-1.2); Eosinophils Absolute Auto 0.2 K/mm3 (0-0.3); Eosinophils Percent Auto 1.6 % (0-4.4); Hematocrit 47.2 % (42.0-52.0); Hemoglobin 15.7 g/dL (14.0-18.0); Immature Granulocyte Absolute 0.03 K/mm3 (0.00-0.031); Immature Granulocyte Percent A 0.3 % (0-0.5); Lymphocytes Absolute Auto 1.43 K/mm3 (0.9-3.2); Mean Corpuscular HGB Conc 33.3 g/dl (32-36); Mean Corpuscular Hemoglobin 31.5 pg (26-34); Mean Corpuscular Volume 94.6 fl (80-100); Mean Platelet Volume 9.9 fl (7.4-10.4); Monocytes Absolute Auto 0.8 K/mm3 (0.1-0.6); Monocytes Percent Auto 7.8 % (2.6-8.5); Neutrophils Absolute Auto 7.7 K/mm3 (1.3-6.7); Neutrophils Percent Auto 75.2 % (45.5-73.1); Platelet Count Result 248 k/mm3 (150-375); Red Blood Count 4.99 M/mm3 (4.6-6.20); Red Cell Distribution Width 15.2 % (11.5-14.5); White Blood Count 10.2 K/mm3 (4.5-10.0)
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
[2023-12-22 16:11] LABS: Alanine Aminotransferase 27 U/L (6-50); Albumin Level 4.6 g/dL (3.5-5.1); Alkaline Phosphatase 67 U/L (38-126); Anion Gap 6 mmol/L (8-16); Aspartate Amino Transferase 40 U/L (17-59); Bilirubin,Total 0.9 mg/dL (0.2-1.3); Blood Urea Nitrogen 15 mg/dL (9-20); Calcium 9.8 mg/dL (8.4-10.2); Carbon Dioxide 25 mmol/L (22-30); Chloride 105 mmol/L (98-107); Estimated CRCL calculation 97 ml/min; Estimated Glomerular Filt Rate > 60; Glucose 113 mg/dL (65-110); Lipase 104 U/L (23-300); Potassium 4.5 mmol/L (3.4-5.0); Sodium 136 mmol/L (137-145)
[2023-12-22 16:19] LABS: Troponin I 0.033 ng/mL (0.000-0.034)
--- NOTE | 2023-12-22 16:24 | ECG_ITS ---
Measurements Intervals [place] Rate: 83 P: 40 SC: 185 QRS: 18 QRSD: 90 T: 82 QT: 361 QTc: 425 Interpretive Statements SINUS RHYTHM NONSPECIFIC ST-T WAVE ABNORMALITY- ANTEROLAT/HIGH LAT LEADS BASELINE ARTIFACT- I, III, AVL BORDERLINE ECG COMPARED TO ECG 12/22/2023 15:31:51 SINUS RHYTHM NOW PRESENT Electronically Signed On 12-22-2023 17:28:31 CDT by Humberto Voss D.O.
[2023-12-22 18:28] LABS: INR 1.1; Prothrombin Time 15.3 Seconds (11.1-14.7)
[2023-12-22 18:29] LABS: Partial Thromboplastin Time 31.2 SECONDS (22.3-36.8)
--- NOTE | 2023-12-22 19:38 | ADMGEN ---
This patient, Roberto Dinero, was admitted to IMU Room 202-. Patient/family oriented to hospital policies and general routines including ID bracelet, bed and alarms, visiting hours, pain management, procedures, bathroom and other care routines, personal items, smoking policy, room service/diet, and visiting hours. Information on how to activate the Rapid Response Team has been discussed. Patient/Family are encouraged to report perceived risks to care and to ask questions if they do not understand what they are told or what they should do.
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
[2023-12-22] MEDS: SODIUM CHLORIDE 0.9% IV 1,000 ML 125 ML IV CONT (20:26)
[2023-12-22 20:44] LABS: Troponin I 0.033 ng/mL (0.000-0.034)
[2023-12-22] MEDS: MULTIVITAMINS /C LUTEIN (CENTRUM SILVER) TABLET *BKC 0.5 TAB PO (21:09)
[2023-12-22] MEDS: APIXABAN 5 MG TABLET PO (21:09)
[2023-12-22] MEDS: FLUTICASONE PROPIONATE 0.05% NA SPR 16 GM BTL (*BKC) 1 SPRAY NASAL (22:20)
[2023-12-22] MEDS: OXYMETAZOLINE HCL 0.05% NAS 15 ML BTL (*BKC) 2 SPRAY NASAL (22:20)
[2023-12-23] VITALS (10 sets, daily range): BP systolic 115–131; BP diastolic 68–74; PULSE 66–80; RESP 18–20; TEMP 36–36.3; O2SAT 96–98
[2023-12-23 00:51] LABS: Troponin I 0.028 ng/mL (0.000-0.034)
[2023-12-23] MEDS: SODIUM CHLORIDE 0.9% IV 1,000 ML 125 ML IV CONT (04:10)
[2023-12-23 04:59] LABS: Anion Gap 1 mmol/L (8-16); Blood Urea Nitrogen 14 mg/dL (9-20); Calcium 8.9 mg/dL (8.4-10.2); Carbon Dioxide 29 mmol/L (22-30); Chloride 108 mmol/L (98-107); Estimated CRCL calculation 97 ml/min; Estimated Glomerular Filt Rate > 60; Glucose 95 mg/dL (65-110); Magnesium 2.1 mg/dL (1.6-2.3); Potassium 4.5 mmol/L (3.4-5.0); Sodium 138 mmol/L (137-145)
--- NOTE | 2023-12-23 08:45 | PM.IMPN ---
Progress Note: A&P Assessment and Plan (1) Atrial fibrillation with rapid ventricular response: Code(s): I48.91 - Unspecified atrial fibrillation Status: Acute (2) Chest tightness: Code(s): R07.89 - Other chest pain Status: Acute (3) Cardiomyopathy: Code(s): I42.9 - Cardiomyopathy, unspecified Status: Acute (4) Chronic anticoagulation: Code(s): Z79.01 - learning solutions specialist (current) use of anticoagulants Status: Acute Plan The patient presented to the emergency department for evaluation of chest tightness and racing heart. History of nonischemic cardiomyopathy, hypertension, hyperlipidemia and proximal atrial fibrillation status post cardiac ablation approximately earlier this month at [facility] 12/16/2023. He got out of bed in her usual state of health eating breakfast he went to [employer] where he is found working on the cars when he suddenly developed sensation of racing heart lighted illness tightness in his mid chest and mild shortness of breath and feelings of fatigue. He was hypotensive with systolic pressure in 80s on arrival and was in rapid atrial fibrillation. He was given a saline bolus and was planned to be started on diltiazem drip however he converted back to sinus rhythm spontaneously. Laboratory evaluation cbc and CMP were unremarkable. Chest x-ray with no acute cardiopulmonary disease. Initial troponin was negative and serial troponin remains negative. EKG did not show any acute ST-T changes. Cardiology has been consulted. Subjective Date/time seen: 12/23/23 08:45 Interval history: Remains in sinus rhythm. Denies any new complaint. Review of Systems Review of Systems: All systems reviewed & are unremarkable except as noted in HPI and below Exam Narrative: General: Well-developed, nontoxic-appearing male sitting up in bed in no acute distress. HEENT: Normocephalic, atraumatic. PERRL, EOMI. Sclera anicteric. Oral mucosa moist. Oropharynx clear. Neck: Supple. No JVD. Respiratory: Lungs are clear to auscultation bilaterally. Cardiovascular: Regular rate and rhythm with S1-S2. Gastrointestinal: Abdomen is soft, nontender, and nondistended with positive bowel sounds. Skin: Warm and dry. No rash or lesions on limited exam. Extremities: No cyanosis, clubbing, or edema. Radial and pedal pulses intact. Neurological: Alert. Cranial nerves 2-12 are grossly intact. No gross focal deficits to casual conversation. Psychiatric: Pleasant and cooperative with normal mood and affect. Judgment and insight intact. Objective Data Vital Signs Vital Signs: Vital Signs - 24 hr 12/22/23 15:28 12/22/23 15:42 12/22/23 15:46 Temperature 97.5 F L Pulse Rate 121 H 157 H Respiratory Rate 18 18 Blood Pressure 142/102 H Pulse Oximetry 100 100 Oxygen Delivery Room Air Room Air 12/22/23 15:48 12/22/23 15:46 12/22/23 15:47 Temperature Pulse Rate 156 H 151 H Respiratory Rate 18 15 Blood Pressure 91/62 L 88/47 L Pulse Oximetry 100 Oxygen Delivery 12/22/23 15:55 12/22/23 15:57 12/22/23 16:00 Temperature Pulse Rate 131 H 152 H 147 H Respiratory Rate 23 H 18 21 H Blood Pressure 88/67 L 90/78 L Pulse Oximetry 100 100 Oxygen Delivery 12/22/23 16:01 12/22/23 16:38 12/22/23 16:03 Temperature Pulse Rate 154 H 82 156 H Respiratory Rate 20 25 H Blood Pressure Pulse Oximetry 100 99 Oxygen Delivery 12/22/23 16:18 12/22/23 16:21 12/22/23 16:48 Temperature Pulse Rate 85 88 84 Respiratory Rate 10 L 24 H 14 Blood Pressure 99/79 L Pulse Oximetry 100 97 98 Oxygen Delivery 12/22/23 17:00 12/22/23 17:01 12/22/23 18:33 Temperature Pulse Rate 82 81 81 Respiratory Rate 13 18 Blood Pressure 102/71 108/80 Pulse Oximetry 100 99 100 Oxygen Delivery 12/22/23 17:46 12/22/23 18:16 12/22/23 20:28 Temperature 97 F L Pulse Rate 84 78 81 Respiratory Rate 18 16 16 Blood Pressure 110/80 116/84 1
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
[2023-12-23] MEDS: EMPAGLIFLOZIN 25 MG TABLET PO (10:00)
[2023-12-23] MEDS: METOPROLOL SUCCINATE EXT REL 100 MG TABCR 200 MG PO (10:00)
[2023-12-23] MEDS: ASPIRIN 81 MG ENTERIC TABLET PO (10:00)
[2023-12-23] MEDS: ATORVASTATIN 40 MG TABLET PO (10:00)
[2023-12-23] MEDS: LORATADINE 10 MG TABLET PO (10:02)
[2023-12-23] MEDS: FUROSEMIDE 20 MG TABLET PO (10:02)
[2023-12-23] MEDS: PANTOPRAZOLE 40 MG TABLET PO (10:02)
[2023-12-23] MEDS: APIXABAN 5 MG TABLET PO (10:02)
--- NOTE | 2023-12-23 15:05 | PM.DS ---
DS: Admitting Diagnosis Discharge Date 12/23/2023 Admitting Diagnosis Palpitation DS: Discharge Diagnosis Discharge Diagnosis (1) Atrial fibrillation with rapid ventricular response: Code(s): I48.91 - Unspecified atrial fibrillation Status: Acute (2) Chest tightness: Code(s): R07.89 - Other chest pain Status: Acute (3) Cardiomyopathy: Code(s): I42.9 - Cardiomyopathy, unspecified Status: Acute (4) Chronic anticoagulation: Code(s): Z79.01 - watermaster (current) use of anticoagulants Status: Acute DS: Summary Hospital Course Hospital Course: The patient presented to the emergency department for evaluation of chest tightness and racing heart. History of nonischemic cardiomyopathy, hypertension, hyperlipidemia and proximal atrial fibrillation status post cardiac ablation approximately earlier this month at [facility] 12/16/2023. He got out of bed in her usual state of health eating breakfast he went to [employer] where he is found working on the cars when he suddenly developed sensation of racing heart lighted illness tightness in his mid chest and mild shortness of breath and feelings of fatigue. He was hypotensive with systolic pressure in 80s on arrival and was in rapid atrial fibrillation. He was given a saline bolus and was planned to be started on diltiazem drip however he converted back to sinus rhythm spontaneously. Laboratory evaluation cbc and CMP were unremarkable. Chest x-ray with no acute cardiopulmonary disease. Initial troponin was negative and serial troponin remains negative. EKG did not show any acute ST-T changes. Cardiology has been consulted. Discussion was made with facility specialist at [facility] by the Cardiology team and was recommended to start amiodarone. Is okay to discharge on amiodarone from cardiac standpoint. Time Spent with Patient Time attestation: Total time spent providing and/or coordinating discharge services:35 mins Exam Narrative: General: Well-developed, nontoxic-appearing male sitting up in bed in no acute distress. HEENT: Normocephalic, atraumatic. PERRL, EOMI. Sclera anicteric. Oral mucosa moist. Oropharynx clear. Neck: Supple. No JVD. Respiratory: Lungs are clear to auscultation bilaterally. Cardiovascular: Regular rate and rhythm with S1-S2. Gastrointestinal: Abdomen is soft, nontender, and nondistended with positive bowel sounds. Skin: Warm and dry. No rash or lesions on limited exam. Extremities: No cyanosis, clubbing, or edema. Radial and pedal pulses intact. Neurological: Alert. Cranial nerves 2-12 are grossly intact. No gross focal deficits to casual conversation. Psychiatric: Pleasant and cooperative with normal mood and affect. Judgment and insight intact. DS: Data Data Completed and Pending Labs on day of discharge: Labs from last 24 hours 12/23/23 12/23/23 12/22/23 03:54 03:53 23:42 WBC RBC Hgb Hct MCV MCH MCHC RDW Plt Count MPV Immature Gran % (Auto) Neut % (Auto) Lymph % (Auto) [place] % (Auto) Eos % (Auto) Baso % (Auto) Lymph # (Auto) [place] # (Auto) Eos # (Auto) Baso # (Auto) Abs Immat Gran (auto) Absolute Neuts (auto) Absolute Nucleated RBC Nucleated RBC % PT INR APTT Sodium 138 Potassium 4.5 Chloride 108 H Carbon Dioxide 29 Anion Gap 1 L BUN 14 Creatinine 0.90 Estim Creat Clear Calc 97 Estimated GFR > 60 Glucose 95 Calcium 8.9 Magnesium 2.1 Total Bilirubin AST ALT Alkaline Phosphatase Troponin I 0.028 Total Protein Albumin Lipase TSH (Reflex) 4.000 Free T4 1.00 Total T3 Pending 12/22/23 12/22/23 12/22/23 20:01 17:58 15:51 WBC 10.2 H RBC 4.99 Hgb 15.7 Hct 47.2 MCV 94.6 MCH 31.5 MCHC 33.3 RDW 15.2 H Plt Count 248 MPV 9.9 Immature Gran % (Auto) 0.3 Neut % (Auto
[2023-12-23 15:20] LABS: Total Triiodothyronine (T3) 1.39 NG/ML (0.97-1.69)
== END 2023-12-23 15:43 | disposition home or self-care (01) ==
LOC: ANHED 17:03 → ANHIMU 18:27
PROVIDERS: Emergency Medicine; Physician Assistant; Admitting Provider Internal Medicine; Emergency Provider Emergency Medicine; PCP Family Medicine; Visit Provider Internal Medicine
DX: I48.91 Unspecified atrial fibrillation (principal); I42.9 Cardiomyopathy, unspecified; R00.0 Tachycardia, unspecified; M19.90 Unspecified osteoarthritis, unspecified site; I25.10 Atherosclerotic heart disease of native coronary artery without angina pectoris; E78.5 Hyperlipidemia, unspecified; I10 Essential (primary) hypertension; F10.90 Alcohol use, unspecified, uncomplicated; F12.90 Cannabis use, unspecified, uncomplicated; F19.11 Other psychoactive substance abuse, in remission; Z98.890 Other specified postprocedural states; Z87.891 Personal history of nicotine dependence; Z79.01 Long term (current) use of anticoagulants; Z79.82 Long term (current) use of aspirin; Z79.899 Other long term (current) drug therapy
CPT/HCPCS: 36415; 71046; 80048; 80053; 83690; 83735; 84439; 84443; 84480; 84484; 85025; 85610; 85730; 93005; 96360; 96361; 99285; A9270; G0379; J7030

== ENCOUNTER 2024-02-17 15:00 | Outpatient (RCR) | payer OTHER, SELFPAY ==
[2023-11-15 16:33] VITALS: PULSE 88
== END 2024-02-17 23:59 | disposition home or self-care (01) ==
LOC: ANHCPREHAB 15:00
PROVIDERS: PCP Family Medicine; Visit Provider Specialist
DX: I50.89 Other heart failure (principal)
CPT/HCPCS: 93798